=== PATIENT | female | born 1930 | race Caucasian/White ===

== ENCOUNTER → 2016-08-23 | Outpatient (CLI) | payer MEDICARE ==
--- NOTE | 2016-08-23 14:55 | US ---
EXAMINATION TYPE: US venous doppler duplex LE RT DATE OF EXAM: 08/23/2016 2:33 PM COMPARISON: NONE CLINICAL HISTORY: RLE Foot and calf pain M79.671; nondisplaced fracture of right 2nd, 3rd and 4th met atarsal; right foot swelling since June 10 fractures SIDE PERFORMED: Right TECHNIQUE: The lower extremity deep venous system is examined utilizing real time linear array sonog monserrat with graded compression, doppler sonography and color-flow sonography. VESSELS IMAGED: Common Femoral Vein Deep Femoral Vein Greater Saphenous Vein * Femoral Vein Popliteal Vein Small Saphenous Vein * Proximal Calf Veins (* superficial vessels) No popliteal fossa lesion is seen. Right Leg: Negative for DVT; Negative for SVT as assessed for Right Greater Saphenous Vein. Prominen t right groin lymph node is imaged = 1.9 x 1.8 x 1.4cm. IMPRESSION: 1. THIS EXAMINATION IS NEGATIVE FOR DVT IN THE RIGHT LEG. 2. ABNORMAL ENLARGED AND REPLACED RIGHT INGUINAL LYMPH NODE.
== END | disposition home or self-care (01) ==
LOC: RADUSWWP 14:06
PROVIDERS: ATTEND Orthopaedic Surgery
DX: R59.0 Localized enlarged lymph nodes (principal); M79.671 Pain in right foot

== ENCOUNTER 2016-09-09 15:02 | Emergency (ER) | payer MEDICARE ==
[2016-09-09 15:28] VITALS: PULSE 70; TEMP 97.8
--- NOTE | 2016-09-09 15:59 | ED ---
General Adult HPI - General Chief complaint: Fall Stated complaint: Fall/head injury-sent by [facility] Time Seen by Provider: 09/09/16 15:49 Source: patient, RN notes reviewed Mode of arrival: wheelchair Limitations: no limitations - History of Present Illness Initial comments: 86-year-old female past mental history of Parkinson's and hypertension presents status post fall in her bathroom. Patient does have history of falls which are secondary to her Parkinson's disease. She fell this morning hit her head on the bathroom sink, there is no loss of consciousness, no history of blood thinners. Patient was evaluated at the urgent care for this fall, she was found to have fracture of the right foot which was splinted, and patient was instructed to follow up with orthopedics. She was sent to our emergency department for evaluation of head trauma. She does complain of a mild occipital headache where she hit her head, no neck pain. Patient has recent fracture of the right foot, and according to her and the findings at urgent care she refractured her foot. No chest pain, no shortness of breath, no palpitations preceding the fall. No abdominal pain. No nausea no vomiting or diarrhea - Related Data Home Medications Medication Instructions Recorded Confirmed Cholecalciferol [Vitamin D3] 3,000 unit PO DAILY 12/09/13 09/09/16 Furosemide [Lasix] 20 mg PO DAILY 12/09/13 09/09/16 [place]-3 Fatty Acids/Fish Oil [Fish 1 cap PO DAILY 12/09/13 09/09/16 Oil 1,000 mg Softgel] amLODIPine BESYLATE/BENAZEPRIL 1 cap PO DAILY 12/09/13 09/09/16 [Lotrel 10-20 mg Capsule] Solifenacin Succinate [Vesicare] 5 mg PO Q48H 12/03/15 09/09/16 cycloSPORINE [Restasis] 1 drop BOTH EYES BID 12/03/15 09/09/16 Carbidopa/Levodopa [Sinemet CR 1 tab PO BID 09/09/16 09/09/16 50-200 mg] Vitamin E (Dl,Tocopheryl Acet) 400 unit PO DAILY 09/09/16 09/09/16 [Vitamin E] Allergies Allergy/AdvReac Type Severity Reaction Status Date / Time oxybutynin chloride Allergy Rash/Hives Verified 09/09/16 15:52 [From Ditropan] Review of Systems ROS Statement: Those systems with pertinent positive or pertinent negative responses have been documented in the HPI. ROS Other: All systems not noted in ROS Statement are negative. Past Medical History Past Medical History: Hypertension Additional Past Medical History / Comment(s): parkinson's History of Any Multi-Drug Resistant Organisms: None Reported Past Surgical History: Appendectomy, Back Surgery, Hysterectomy, Tonsillectomy Past Psychological History: No Psychological Hx Reported Smoking Status: Never smoker Past Alcohol Use History: Rare Past Drug Use History: None Reported General Exam Limitations: no limitations General appearance: alert, in no apparent distress Head exam: Present: normocephalic, other (Tenderness to palpation in the mid occiput, no hematoma, no scalp laceration) Eye exam: Present: normal appearance, PERRL, EOMI ENT exam: Present: normal exam, mucous membranes moist Neck exam: Present: normal inspection, full ROM. Absent: tenderness Respiratory exam: Present: normal lung sounds bilaterally, respiratory distress Cardiovascular Exam: Present: regular rate, normal rhythm GI/Abdominal exam: Present: soft. Absent: distended, tenderness Extremities exam: Present: other (Procedure note placed on the right lower extremity. Good cap refill. There is soft tissue swelling in the mid foot) Back exam: Present: normal inspection, full ROM. Absent: tenderness Neurological exam: Present: alert, oriented X3, CN II-XII intact. Absent: motor sensory deficit Psychiatric exam: Present: normal affect, normal mood Skin exam: Present: warm, dry. Absent: cyanosis, diaphoretic Course Vital Signs 09/09/16 15:23 Temperature 97.8 F Pulse Rate 70 Respiratory 16 Rate Blood Pressure 136/61 O2 Sat by Pulse 99 Oximetry Medical Decision Making - Medical Decision Making 86-year-old female presents status post fall. Patient has Parkinson's and has history of occasional falls. She denied any preceding symptoms. Her head on the bathroom sink. No loss of consciousness. Patient was evaluated for his fall at her urgent care and found to have fractures in the right foot. She has a recent history of fractures and according to the patient she refractured this foot today. She was splinted prior to arrival. She has an appointment with orthopedic surgery on Monday for the broken foot. Head CT and CT of the cervical spine was obtained emergency department, there is no intracranial abdomen Oddi, no fracture or subluxation of the cervical spine. Patient is discharged home with outpatient follow-up. Diagnosis: Right foot fracture, closed head injury. Disposition Clinical Impression: Fall, Head injury Disposition: HOME SELF-CARE Instructions: Fall Prevention for Older Adults (ED), Head Injury (ED) Referrals: Doroteo Roblero MD [Primary Care Provider] - 1-2 days Time of Disposition: 17:31
--- NOTE | 2016-09-09 17:12 | CT ---
EXAMINATION TYPE: CT brain bhavik nice DATE OF EXAM: 09/09/2016 COMPARISON: 12/03/2015 HISTORY: Fall today with injury. No head or neck complaints at time of scan CT DLP: 1607 mGycm Automated exposure control for dose reduction was used. TECHNIQUE: CT scan of the head and cervical spine are performed without contrast. FINDINGS: There is some cerebral cortical atrophy. There is no mass effect nor midline shift. There is no sign of intracranial hemorrhage. Calvarium is intact. There is patchy hypodensity in the periv entricular white matter.. Cervical vertebra have normal alignment. There is moderate narrowing of C 5/6 disc space with spurrin g of the endplates. There is a mild relative spinal stenosis at C5-6. Facet joints are intact. Skull base is intact. There is calcification of the transverse ligament at C1 level. IMPRESSION: Cerebral atrophy. Mild chronic small vessel ischemia. No acute intracranial abnormality. No change in the appearance of the brain. Spondylosis at C5-6. No fracture. No change compared to old exam.
[2016-09-09 18:04] VITALS: BP 120/59; RESP 18
== END 2016-09-09 18:04 | disposition home or self-care (01) ==
LOC: EC 15:02
DX: S09.90XA Unspecified injury of head, initial encounter (principal); S92.901A Unspecified fracture of right foot, initial encounter for closed fracture; I10 Essential (primary) hypertension; G20 Parkinson's disease; Z79.899 Other long term (current) drug therapy; Z88.8 Allergy status to other drugs, medicaments and biological substances; W01.198A Fall on same level from slipping, tripping and stumbling with subsequent striking against other object, initial encounter; Y92.002 Bathroom of unspecified non-institutional (private) residence as the place of occurrence of the external cause
CPT/HCPCS: 70450; 72125; 99283

== ENCOUNTER → 2017-05-08 | Outpatient (CLI) | payer MEDICARE ==
--- NOTE | 2017-05-08 13:20 | XR ---
EXAMINATION TYPE: XR Hip RT and AP Pelvis DATE OF EXAM: 05/08/2017 COMPARISON: NONE HISTORY: Fall with subsequent pelvic and right hip pain TECHNIQUE: A single AP view of the pelvis is obtained. Two views of the right hip are obtained. FINDINGS: There is no acute fracture/dislocation evident in the pelvis. The hip and sacroiliac join ts appear symmetric and unremarkable. The overlying soft tissue appears unremarkable. Two views of right hip show no acute fracture or dislocation. No focal lytic or sclerotic lesion see n in the proximal right femur. Mild bilateral femoral acetabular arthropathy is seen, right greater t garcía left demonstrated as cephalad joint space narrowing and acetabular sclerosis. Postsurgical change s of the lumbar spine are partially visualized. The overlying soft tissue is unremarkable. IMPRESSION: There is no acute fracture or dislocation in the pelvis or right hip.
--- NOTE | 2017-05-08 13:20 | XR ---
EXAMINATION TYPE: XR lumbosacral spine min 4V DATE OF EXAM: 05/08/2017 COMPARISON: 12/09/2013 HISTORY: 87-year-old female with low back pain after fall last week TECHNIQUE: 5 views FINDINGS: Levoconvex curvature. 5 lumbar type vertebral bodies. There is posterior lumbar fusion from L2 throug h L4 levels with mature lateral osseous fusion and corresponding laminectomies. There appears to be p rogressive disposition degenerative change at the level above the fusion at L1-L2. Grade 1 retrolisth esis at the fused L2-L3 level appears similar. Grade 1 anterolisthesis at L5-S1 appears new. Vertebra l body heights are maintained. IMPRESSION: 1. Posterior lumbar and lateral osseous fusion from L2 through L4 levels with corresponding laminecto mies. 2. Progressive disc/endplate degenerative change above the fusion at L1-L2 with complete loss of disc space and [id number] articulation with progressive reactive sclerosis, endplate remodeling, and se condary accentuation of a kyphosis here. 3. No vertebral compression collapse. 4. New grade 1 anterolisthesis L5-S1.
== END | disposition home or self-care (01) ==
LOC: RADXRMAIN 12:39
PROVIDERS: ATTEND Internal Medicine
DX: M43.17 Spondylolisthesis, lumbosacral region (principal); M47.816 Spondylosis without myelopathy or radiculopathy, lumbar region; Z98.1 Arthrodesis status
CPT/HCPCS: 72110; 73502

== ENCOUNTER → 2017-08-23 | Outpatient (CLI) | payer MEDICARE ==
--- NOTE | 2017-08-24 10:17 | MM ---
Reason for exam: screening (asymptomatic). Last mammogram was performed 11 years and 9 months ago. History: Patient is postmenopausal. Family history of premenopausal breast cancer in sister. Physical Findings: A clinical breast exam by your physician is recommended on an annual basis and results should be correlated with mammographic findings. MG 3D Screening Mammo W/Cad Bilateral CC and MLO view(s) were taken. Prior study comparison: August 13, 2015, mammogram, performed at [facility]. July 23, 2013, mammogram, performed at [facility]. November 16, 2005, bilateral screening mammogram w/CAD. October 08, 2002, bilateral screening mammogram. There are scattered fibroglandular densities. Benign appearing bilateral calcifications. No suspicious abnormality. No significant changes when compared with prior studies. ASSESSMENT: Benign, BI-RAD 2 RECOMMENDATION: Routine screening mammogram of both breasts in 1 year.
== END | disposition home or self-care (01) ==
LOC: RADMAMWWP 14:30
PROVIDERS: ATTEND Internal Medicine
DX: Z12.31 Encounter for screening mammogram for malignant neoplasm of breast (principal)
CPT/HCPCS: 77063; 77067

== ENCOUNTER → 2017-12-15 | Outpatient (CLI) | payer MEDICARE ==
--- NOTE | 2017-12-15 16:01 | XR ---
EXAMINATION TYPE: XR Hip Complete RT DATE OF EXAM: 12/15/2017 CLINICAL HISTORY: pain TECHNIQUE: AP and frogleg views of the right hip are obtained. COMPARISON: None. FINDINGS: There is no acute fracture/dislocation evident. The joint space appears mildly narrowed. The overlying soft tissue appears unremarkable. IMPRESSION: 1. There is no acute fracture or dislocation. ICD 10 NO FRACTURE, INITIAL EVALUATION
--- NOTE | 2017-12-17 10:05 | XR ---
EXAMINATION TYPE: XR lumbar spine 2 or 3V DATE OF EXAM: 12/15/2017 CLINICAL HISTORY: pain TECHNIQUE: Three views of the lumbar spine are submitted. COMPARISON: May 08, 2017 FINDINGS: Postoperative changes of lumbar fusion and laminectomy with pedicular screws extending from L2 throug h L4. There is stable alignment noted. Severe degenerative change noted at L1-2. There appears to be grade 1 retrolisthesis of L2 on L3 of 7 mm unchanged from prior study. No evidence for compression fr acture. IMPRESSION: Stable postoperative appearance and alignment.
== END | disposition home or self-care (01) ==
LOC: RADXRMAIN 15:24
PROVIDERS: ATTEND Psychiatry & Neurology Neurology
DX: S79.911A Unspecified injury of right hip, initial encounter (principal); M54.5 Low back pain; Z98.1 Arthrodesis status; Z98.890 Other specified postprocedural states
CPT/HCPCS: 72100; 73502

== ENCOUNTER → 2018-01-08 | Outpatient (CLI) | payer MEDICARE ==
--- NOTE | 2018-01-08 14:34 | MR ---
EXAMINATION TYPE: MR lumbar spine wo con DATE OF EXAM: 01/08/2018 COMPARISON: Plain film dated 12/15/2017 HISTORY: Radiculopathy; herniated disk TECHNIQUE: Multiplanar, multisequence images of the lumbar spine were acquired. L1-L2: Posterior extension of endplate disc complex causes anterior mass effect on the thecal sac. On ly mild central stenosis. No significant foraminal encroachment. L2-L3: No significant central canal stenosis. There may be some foraminal encroachment contributed by the listhesis. No disc herniation. L3-L4: No significant central stenosis or disc herniation. No foraminal encroachment. Laminectomy keon nge is present. L4-L5: Broad-based posterior disc bulge present at L3-4 and shows is mild anterior mass effect on the thecal sac. Laminectomies present. No significant spinal stenosis or foraminal encroachment. Posteri or to the spinal canal slitlike fluid collection May represent postoperative seroma. L5-S1: Facet arthropathy change with hypertrophy of ligamentum flavum causes posterior lateral mass e ffect on the thecal sac. No significant foraminal encroachment or central stenosis. Suspect there is a synovial cysts along the right neural foramen. Lumbar segments are intact. No paraspinal masses are identified. Conus medullaris has a normal appe arance. There is a spinal curvature as noted on plain film. Metallic susceptibility artifact obscures detail. Slight kyphosis centered at L1-2 as on plain film. Loss of disc height and signal present at intervertebral levels especially L2-3, L1-2, there is endplate discogenic marrow signal change, mult ilevel spondylosis. Retrolisthesis grade 1 L2-3 as on plain film. Lumbar vertebral bodies show preser lance height. IMPRESSION: Degenerative disc disease, facet arthropathy, postop changes, foraminal encroachment as described, ad ditional findings above.
== END | disposition home or self-care (01) ==
LOC: RADMRIMAIN 11:48
PROVIDERS: ATTEND Psychiatry & Neurology Neurology
DX: M51.36 Other intervertebral disc degeneration, lumbar region (principal); M46.96 Unspecified inflammatory spondylopathy, lumbar region; Z98.890 Other specified postprocedural states
CPT/HCPCS: 72148

== ENCOUNTER 2018-09-21 13:19 | Observation (INO) | payer MEDICARE ==
[2018-09-21] MEDS ORDERED: MORPHINE SULFATE 2 MG/ML SYRINGE IVP STA (13:47)
--- NOTE | 2018-09-21 14:06 | ED ---
Fall HPI - General Chief Complaint: Fall Stated Complaint: fall Time Seen by Provider: 09/21/18 13:41 Source: EMS Mode of arrival: EMS - History of Present Illness Initial Comments: 88-year-old female history of Parkinson's disease and HTN presenting today for cc of fall and mid back pain. Patient states that she has history of Parkinson's disease and is often off balance due to her tremor. Patient states she was getting out of the shower when she fell hitting left side of her mid back on the edge of the bathtub. Patient denies any head injury injury to the neck. She states she had pain and was able to get up and ambulate down the stairs. She denies pain of the upper extremities or lower extremities. She states the pain wraps around her left side towards the abdomen. Patient states that she takes a deep breath she is increasing pain. Patient denies loss of consciousness. Injury to the face. Patient denies any use of anticoagulation. Patient denies any chest pain shortness of breath dizziness headache or any other symptoms prior to falling she states she simply lost her balance. Remaining review of systems negative, upon arrival patient appears uncomfo rtable, holding the left side of the mid back. Remaining ROS (-). - Related Data Home Medications Medication Instructions Recorded Confirmed Cholecalciferol [Vitamin D3] 3,000 unit PO DAILY 12/09/13 09/21/18 Furosemide [Lasix] 20 mg PO DAILY 12/09/13 09/21/18 [place]-3 Fatty Acids/Fish Oil [Fish 1 cap PO DAILY 12/09/13 09/21/18 Oil 1,000 mg Softgel] amLODIPine BESYLATE/BENAZEPRIL 1 cap PO DAILY 12/09/13 09/21/18 [Lotrel 10-20 mg Capsule] Carbidopa/Levodopa [Sinemet CR 1 tab PO BID 09/09/16 09/21/18 50-200 mg] Vitamin E (Dl,Tocopheryl Acet) 400 unit PO DAILY 09/09/16 09/21/18 [Vitamin E] Baclofen [Lioresal] 10 mg PO HS 09/21/18 09/21/18 Lifitegrast [Xiidra] 1 drop BOTH EYES BID 09/21/18 09/21/18 Mirabegron [Myrbetriq] 50 mg PO DAILY 09/21/18 09/21/18 Rasagiline Mesylate 1 mg PO DAILY 09/21/18 09/21/18 Allergies Allergy/AdvReac Type Severity Reaction Status Date / Time oxybutynin chloride Allergy Rash/Hives Verified 09/21/18 15:59 [From Ditropan] Review of Systems ROS Statement: Those systems with pertinent positive or pertinent negative responses have been documented in the HPI. ROS Other: All systems not noted in ROS Statement are negative. Past Medical History Past Medical History: Hypertension Additional Past Medical History / Comment(s): parkinson's History of Any Multi-Drug Resistant Organisms: None Reported Past Surgical History: Appendectomy, Back Surgery, Hysterectomy, Tonsillectomy Past Psychological History: No Psychological Hx Reported Smoking Status: Never smoker Past Alcohol Use History: Rare Past Drug Use History: None Reported General Exam - General Exam Comments Initial Comments: General: The patient is awake and alert, in no distress, and does not appear acutely ill. Eye: +2 mm pupils are equal, round and reactive to light, extra-ocular movements are intact. No nystagmus. There is normal conjunctiva bilaterally. No signs of icterus. No scalp/head deformities or palpable defects. Ears, nose, mouth and throat: There are moist mucous membranes and no oral lesions. No raccoon or bailey sign. No blood in the TM b/l. Neck: The neck is supple, there is no tenderness or JVD. No midline tenderness to palpation of the cervical or lumbar spine, patient is able to full range at the c-spine without difficulty. Cardiovascular: There is a regular rate and rhythm. No murmur, rub or gallop is appreciated. Respiratory: Lungs are clear to auscultation, respirations are non-labored, breath sounds are equal. No wheezes, stridor, rales, or rhonchi. Gastrointestinal: No bruising noted of the abdomen. The abdomen is soft, non-distended, there is no tenderness to palpation of the abdomen without masses or organomegaly noted. There is no rebound or guarding present. The is pain to palpation of the left lateral ribs. No flail chest or gross deformity. Musculoskeletal: Normal ROM, no tenderness. Strength 5/5. Sensation intact. Pulses equal bilaterally 2+. Neurological: A&O x 3. CN II-XII intact, There are no obvious motor or sensory deficits. Speech is normal. Tremor of hands noted b/l. Skin: Skin is warm and dry and no rashes or lesions are noted. Psychiatric: Cooperative, appropriate mood & affect, normal judgment. Limitations: no limitations Course Vital Signs 09/21/18 09/21/18 09/21/18 13:20 14:59 16:20 Temperature 98 F Pulse Rate 66 67 75 Respiratory 16 18 18 Rate Blood Pressure 130/66 130/66 130/66 O2 Sat by Pulse 100 100 99 Oximetry 09/21/18 18:26 Temperature 98 F Pulse Rate 75 Respiratory 18 Rate Blood Pressure 130/66 O2 Sat by Pulse 99 Oximetry Medical Decision Making - Medical Decision Making 88yo female presenting today for cc of fall with back/side pain. Multiple displaced rib fractures of 7 & 8 left lateral ribs. With noted pulmonary contusion. There is no noted pneumothorax. Patient has lung sounds present in all almendarez. Patient is splinting her breaths. Her pain was no controlled with morphine in the ER. Patient has no other complaints. No apparent intraabdominal process. Patient dnies headache injury, no focal deficits. Case discussed with Dr Pollard he consulted trauma. Dr. Wei accepted admission. Patient has ordered PRN medications. Ordered hourly incentive spirometry. Findings discussed with patient she remains stable, VS within acceptable limits. Patient agreeable with admission. Transferred to the floor in stable condition - Lab Data Result diagrams: 09/21/18 14:35 09/21/18 14:35 Lab Results 09/21/18 09/21/18 Range/Units 14:35 14:35 WBC 8.1 (3.8-10.6) k/uL RBC 4.57 (3.80-5.40) m/uL Hgb 14.4 (11.4-16.0) gm/dL Hct 43.2 (34.0-46.0) % MCV 94.5 (80.0-100.0) fL MCH 31.6 (25.0-35.0) pg MCHC 33.4 (31.0-37.0) g/dL RDW 12.3 (11.5-15.5) % Plt Count 352 (150-450) k/uL Neutrophils % 75 % Lymphocytes % 14 % Monocytes % 7 % Eosinophils % 1 % Basophils % 1 % Neutrophils # 6.1 (1.3-7.7) k/uL Lymphocytes # 1.1 (1.0-4.8) k/uL Monocytes # 0.5 (0-1.0) k/uL Eosinophils # 0.1 (0-0.7) k/uL Basophils # 0.1 (0-0.2) k/uL Sodium 136 L (137-145) mmol/L Potassium 4.9 (3.5-5.1) mmol/L Chloride 102 (98-107) mmol/L Carbon Dioxide 24 (22-30) mmol/L Anion Gap 10 mmol/L BUN 27 H (7-17) mg/dL Creatinine 1.00 (0.52-1.04) mg/dL Est GFR (CKD-EPI)AfAm 59 (>60 ml/min/1.73 sqM) Est GFR (CKD-EPI)NonAf 52 (>60 ml/min/1.73 sqM) Glucose 106 H (74-99) mg/dL Calcium 10.1 (8.4-10.2) mg/dL Total Bilirubin 0.7 (0.2-1.3) mg/dL AST 32 (14-36) U/L ALT 13 (9-52) U/L Alkaline Phosphatase 71 (38-126) U/L Total Protein 7.9 (6.3-8.2) g/dL Albumin 4.6 (3.5-5.0) g/dL Disposition Clinical Impression: Closed traumatic displaced fracture of rib, Pulmonary contusion, Back pain, Multiple rib fractures, Fall Disposition: ADMITTED IP TO THIS [facility] Condition: Stable Is patient prescribed a controlled substance at d/c from ED?: No Time of Disposition: 16:35 Decision to Admit Reason: Admit from EC Decision Date: 09/21/18 Decision Time: 16:35
--- NOTE | 2018-09-21 14:43 | XR ---
EXAMINATION TYPE: XR thoracic spine 2V DATE OF EXAM: 09/21/2018 CLINICAL HISTORY: Back pain after fall TECHNIQUE: Frontal, lateral, and swimmer's view of thoracic spine are obtained. COMPARISON: None. FINDINGS: Thoracic spine show satisfactory alignment without evidence of acute fracture or dislocatio n. Vertebral body heights are preserved however intervertebral disc space narrowing is seen at multi ple levels with small anterior osteophytes. Surgical fixation of the lumbar spine is partially visual ized with surgical clips at the thoracolumbar junction. Mild levoscoliosis of the thoracolumbar junct ion may be positional. IMPRESSION: No acute fracture or malalignment is seen in the thoracic spine. Mild multilevel degener ative disc disease.
--- NOTE | 2018-09-21 14:45 | XR ---
EXAMINATION TYPE: XR ribs LT w pa chest xray DATE OF EXAM: 09/21/2018 COMPARISON: NONE HISTORY: Back pain and rib pain after fall TECHNIQUE: Frontal and oblique views of the left ribs were obtained. Single frontal view the chest wa s also obtained. FINDINGS: There are minimally displaced acute fractures of ribs 7 and 8 of a posterior lateral margin on the left. No healed callused rib fracture deformity is seen. No additional acute displaced fractu re. Left lower lung slight increased density could represent pulmonary contusion. No discrete pneumothora x is appreciated. Cardiomediastinal silhouette is mildly enlarged. No focal consolidation on the righ t. IMPRESSION: 1. Minimally displaced acute fractures of ribs 7 and 8 on the left at the posterior lateral margin. 2. Patchy opacity adjacent to the rib fractures in the left lower lobe could relate to pulmonary cont usion. No discrete pneumothorax is seen.
[2018-09-21 14:59] LABS: Basophils # (A) 0.1 k/uL (0-0.2); Basophils % (A) 1 %; Eosinophils # (A) 0.1 k/uL (0-0.7); Eosinophils % (A) 1 %; HCT 43.2 % (34.0-46.0); HGB 14.4 gm/dL (11.4-16.0); Lymphocytes # (A) 1.1 k/uL (1.0-4.8); Lymphocytes % (A) 14 %; MCH 31.6 pg (25.0-35.0); MCHC 33.4 g/dL (31.0-37.0); MCV 94.5 fL (80.0-100.0); Mean Platelet Volume 7.5; Monocytes # (A) 0.5 k/uL (0-1.0); Monocytes % (A) 7 %; Neutrophils # (A) 6.1 k/uL (1.3-7.7); Neutrophils % (A) 75 %; Platelet Count 352 k/uL (150-450); RBC 4.57 m/uL (3.80-5.40); RDW 12.3 % (11.5-15.5); WBC 8.1 k/uL (3.8-10.6)
[2018-09-21 15:05] LABS: Albumin 4.6 g/dL (3.5-5.0); Calcium 10.1 mg/dL (8.4-10.2); Potassium 4.9 mmol/L (3.5-5.1); Total Bilirubin 0.7 mg/dL (0.2-1.3); Total Protein 7.9 g/dL (6.3-8.2)
[2018-09-21] MEDS ORDERED: MORPHINE SULFATE 4 MG/ML SYRINGE IVP STA (15:53)
--- NOTE | 2018-09-21 15:54 | CT ---
EXAMINATION TYPE: CT abdomen pelvis w con DATE OF EXAM: 09/21/2018 COMPARISON: X-ray the ribs dated 09/21/2018 HISTORY: Fall CT DLP: 527.9 mGycm Automated exposure control for dose reduction was used. TECHNIQUE: Helical acquisition of images was performed from the lung bases through the pelvis. CONTRAST: Performed without Oral Contrast and with IV Contrast, patient injected with 100 mL mL of Isovue 370. FINDINGS: LUNG BASES: Redemonstration of partially visualized nondisplaced left posterior-lateral comminuted ei ghth and ninth rib fractures with a portion of the rib fracture extending into the pleural space and causing subcutaneous emphysema along the posterior chest and abdomen. No evidence of pneumothorax in the visualized portion of the chest on the left. Left basilar subsegmental atelectasis. LIVER/GB: No significant abnormality is appreciated. PANCREAS: No significant abnormality is seen. SPLEEN: No significant abnormality is seen. ADRENALS: No significant abnormality is seen. KIDNEYS: No significant abnormality is seen. FREE AIR: No free air is visualized. RETROPERITONEAL ADENOPATHY: Retroperitoneal surgical clips are seen along the spleen and left kidney . REPRODUCTIVE ORGANS: No significant abnormality is seen URINARY BLADDER: No significant abnormality is seen. PELVIC ADENOPATHY: None visualized. OSSEOUS STRUCTURES: L2-4 posterior fusion hardware appears intact. Adjacent level endplate disease a t L1-S2. No acute compression deformity. BOWEL: No significant abnormality is seen. IMPRESSION: NO ACUTE PROCESS WITHIN THE ABDOMEN OR PELVIS. NO EVIDENCE OF VISCERAL ORGAN INJURY. PARTIALLY VISUALIZED DISPLACED LEFT RIB FRACTURES WITH EXTENSION INTO THE PLEURAL SPACE AND LEFT POST ERIOR CHEST AND ABDOMEN SUBCUTANEOUS EMPHYSEMA.
[2018-09-21] MEDS ORDERED: ONDANSETRON 4 MG/2 ML VIAL IVP PRN (16:31)
[2018-09-21] MEDS ORDERED: NALOXONE 0.4 MG/ML 1 ML VIAL IV PRN (16:31)
[2018-09-21] MEDS: SODIUM CHLORIDE 0.9% 1,000 ML IV SCH (18:27)
[2018-09-21] MEDS: MORPHINE SULFATE 4 MG/ML SYRINGE IV PRN ×2 (19:38→23:22)
[2018-09-21] MEDS: HYDROcodone/APAP 5-325MG 1 EACH TAB PO PRN (20:24)
[2018-09-21] MEDS: METHOCARBAMOL 500 MG TAB PO SCH (20:24)
--- NOTE | 2018-09-21 21:34 | P.GSHP ---
History of Present Illness H&P Date: 09/21/18 This 88-year-old female with Parkinson's disease who was in her bathroom when she turned and lost her balance she fell and hit her left side on her way down. She denies any loss of consciousness she denies hitting her head. She's not on any blood thinners. She was found to have multiple left rib fractures minimally displaced. She complains of pain on her left back near her rib fractures. She denies any abdominal pain. She denies any nausea vomiting. She denies any other injuries. Past Medical History Past Medical History: Hypertension Additional Past Medical History / Comment(s): parkinson's History of Any Multi-Drug Resistant Organisms: None Reported Past Surgical History: Appendectomy, Back Surgery, Hysterectomy, Tonsillectomy Past Psychological History: No Psychological Hx Reported Smoking Status: Never smoker Past Alcohol Use History: Rare Past Drug Use History: None Reported - Past Family History Mother Family Medical History: No Reported History Medications and Allergies Home Medications Medication Instructions Recorded Confirmed Type Cholecalciferol [Vitamin D3] 3,000 unit PO DAILY 12/09/13 09/21/18 History Furosemide [Lasix] 20 mg PO DAILY 12/09/13 09/21/18 History [place]-3 Fatty Acids/Fish Oil [Fish 1 cap PO DAILY 12/09/13 09/21/18 History Oil 1,000 mg Softgel] amLODIPine BESYLATE/BENAZEPRIL 1 cap PO DAILY 12/09/13 09/21/18 History [Lotrel 10-20 mg Capsule] Carbidopa/Levodopa [Sinemet CR 1 tab PO BID 09/09/16 09/21/18 History 50-200 mg] Vitamin E (Dl,Tocopheryl Acet) 400 unit PO DAILY 09/09/16 09/21/18 History [Vitamin E] Baclofen [Lioresal] 10 mg PO HS 09/21/18 09/21/18 History Lifitegrast [Xiidra] 1 drop BOTH EYES BID 09/21/18 09/21/18 History Mirabegron [Myrbetriq] 50 mg PO DAILY 09/21/18 09/21/18 History Rasagiline Mesylate 1 mg PO DAILY 09/21/18 09/21/18 History Allergies Allergy/AdvReac Type Severity Reaction Status Date / Time oxybutynin chloride Allergy Rash/Hives Verified 09/21/18 15:59 [From Ditropan] Surgical - Exam Osteopathic Statement: *. No significant issues noted on an osteopathic structural exam other than those noted in the History and Physical/Consult. Vital Signs Temp Pulse Resp BP Pulse Ox 98 F 66 16 130/66 100 09/21/18 13:20 09/21/18 13:20 09/21/18 13:20 09/21/18 13:20 09/21/18 13:20 - General well developed, no distress - Eyes PERRL - Neck no masses - Respiratory Tenderness palpation over the left flank normal respiratory effort - Cardiovascular Rhythm: regular - Abdomen Abdomen: soft, non tender - Psychiatric oriented to time, oriented to person, oriented to place Results - Labs 09/21/18 14:35 09/21/18 14:35 Abnormal Lab Results - Last 24 Hours (Table) 09/21/18 Range/Units 14:35 Sodium 136 L (137-145) mmol/L BUN 27 H (7-17) mg/dL Glucose 106 H (74-99) mg/dL Diabetes panel 09/21/18 Range/Units 14:35 Sodium 136 L (137-145) mmol/L Potassium 4.9 (3.5-5.1) mmol/L Chloride 102 (98-107) mmol/L Carbon Dioxide 24 (22-30) mmol/L BUN 27 H (7-17) mg/dL Creatinine 1.00 (0.52-1.04) mg/dL Glucose 106 H (74-99) mg/dL Calcium 10.1 (8.4-10.2) mg/dL AST 32 (14-36) U/L ALT 13 (9-52) U/L Alkaline Phosphatase 71 (38-126) U/L Total Protein 7.9 (6.3-8.2) g/dL Albumin 4.6 (3.5-5.0) g/dL Calcium panel 09/21/18 Range/Units 14:35 Calcium 10.1 (8.4-10.2) mg/dL Albumin 4.6 (3.5-5.0) g/dL Pituitary panel 09/21/18 Range/Units 14:35 Sodium 136 L (137-145) mmol/L Potassium 4.9 (3.5-5.1) mmol/L Chloride 102 (98-107) mmol/L Carbon Dioxide 24 (22-30) mmol/L BUN 27 H (7-17) mg/dL Creatinine 1.00 (0.52-1.04) mg/dL Glucose 106 H (74-99) mg/dL Calcium 10.1 (8.4-10.2) mg/dL Adrenal panel 09/21/18 Range/Units 14:35 Sodium 136 L (137-145) mmol/L Potassium 4.9 (3.5-5.1) mmol/L Chloride 102 (98-107) mmol/L Carbon Dioxide 24 (22-30) mmol/L BUN 27 H (7-17) mg/dL Creatinine 1.00 (0.52-1.04) mg/dL Glucose 106 H (74-99) mg/dL Calcium 10.1 (8.4-10.2) mg/dL Total Bilirubin 0.7 (0.2-1.3) mg/dL AST 32 (14-36) U/L ALT 13 (9-52) U/L Alkaline Phosphatase 71 (38-126) U/L Total Protein 7.9 (6.3-8.2) g/dL Albumin 4.6 (3.5-5.0) g/dL Assessment and Plan Assessment: Minimally displaced left posterior ribs 7 and 8 Plan: I lengthy discussion with the patient regarding her advanced age and the risks of rib fractures and pneumonia. I personally taught her and encouraged her to use the incentive spirometer. We will continue with aggressive pain management. [place] Robaxin Toradol and IV morphine as needed. Patient is not in the ICU at this time as she is stable and using her incentive spirometer. If her pain becomes [id number] where she cannot use her incentive spirometer will consider ICU, also discussed with her that we could try an epidural if pain is not manageable. Patient would like to try to manage pain on oral pain medication with IV push as needed at this time. She is very agreeable. Patient does have a pulmonary contusion and she states that due to her Parkinson's she gets buildup of mucus. Due to this I recommend pulmonology consultation. We'll continue to closely monitor. Internal medicine consulted for medical management.
[2018-09-22] MEDS: KETOROLAC 30 MG/ML 1 ML VIAL IVP SCH ×5 (00:52→23:59)
--- NOTE | 2018-09-22 01:21 | P.CONS ---
History of Present Illness - Reason for Consult Consult date: 09/22/18 - History of Present Illness The patient is an 88 yo F with a PMH of parkinson's and HTN who was brought into the ED after a fall at home. The patient notes that she was in her bathroom with her walker when she lost her balance and fell on the border of the shower door, hitting the left side of her chest. She denied any head trauma or loss of consciousness. She was able to stand back up and activated EMS. She notes that she routinely falls multiple times a day due to her ataxia from Parkinson's, though is usually able to protect herself and doesn't sustain injuries. The patient lives by herself. At time of the interview, the patient endorsed 4/10 L sided chest pain with radiation throughout her entire left flank and her abdomen. She however denied shortness of breath, nausea, vomiting, palpitations, or diaphoresis. The patient underwent an extensive evaluation in the ED with ribs x-ray showing left mildly displaced 7 and 8 rib fractures with pulmonary contusion and no pneumothorax. Thoracic spine x-ray was unremarkable and abdomen/pelvis CT also revealed the displaced rib fractures. Laboratory evaluation revealed a WBC count of 8.1, hemoglobin 14.4, BUN 27, and creatinine 1.00. Review of Systems Pertinent positives and negatives as discussed in HPI, a complete review of systems was performed and all other systems are negative. Past Medical History Past Medical History: Hypertension Additional Past Medical History / Comment(s): parkinson's History of Any Multi-Drug Resistant Organisms: None Reported Past Surgical History: Appendectomy, Back Surgery, Hysterectomy, Tonsillectomy Past Psychological History: No Psychological Hx Reported Smoking Status: Never smoker Past Alcohol Use History: Rare Past Drug Use History: None Reported - Past Family History Mother Family Medical History: No Reported History Medications and Allergies Home Medications Medication Instructions Recorded Confirmed Type Cholecalciferol [Vitamin D3] 3,000 unit PO DAILY 12/09/13 09/21/18 History Furosemide [Lasix] 20 mg PO DAILY 12/09/13 09/21/18 History [place]-3 Fatty Acids/Fish Oil [Fish 1 cap PO DAILY 12/09/13 09/21/18 History Oil 1,000 mg Softgel] amLODIPine BESYLATE/BENAZEPRIL 1 cap PO DAILY 12/09/13 09/21/18 History [Lotrel 10-20 mg Capsule] Carbidopa/Levodopa [Sinemet CR 1 tab PO BID 09/09/16 09/21/18 History 50-200 mg] Vitamin E (Dl,Tocopheryl Acet) 400 unit PO DAILY 09/09/16 09/21/18 History [Vitamin E] Baclofen [Lioresal] 10 mg PO HS 09/21/18 09/21/18 History Lifitegrast [Xiidra] 1 drop BOTH EYES BID 09/21/18 09/21/18 History Mirabegron [Myrbetriq] 50 mg PO DAILY 09/21/18 09/21/18 History Rasagiline Mesylate 1 mg PO DAILY 09/21/18 09/21/18 History Allergies Allergy/AdvReac Type Severity Reaction Status Date / Time oxybutynin chloride Allergy Rash/Hives Verified 09/21/18 15:59 [From Ditropan] Physical Exam Vitals: Vital Signs Temp Pulse Pulse Resp BP BP Pulse Ox 09/21/18 21:27 18 09/21/18 21:00 96.3 F L 77 16 147/70 97 09/21/18 18:26 98 F 75 18 130/66 99 09/21/18 16:20 75 18 130/66 99 09/21/18 14:59 67 18 130/66 100 09/21/18 13:20 98 F 66 16 130/66 100 Intake and Output 09/21/18 09/21/18 09/22/18 14:59 22:59 06:59 Other: Voiding Method Toilet # Voids 1 Weight 53.524 kg General: non toxic, in mild distress from pain, appears at stated age, normal weight Derm: no unusual rashes/lesions no unusual ecchymoses, warm, dry Head: atraumatic, normocephalic, symmetric Eyes: EOMI, no lid lag, anicteric sclera, pupils equal round reactive to light ENT: Nose and ears atraumatic, no thrush, no pharyngeal erythema Neck: No thyromegaly, no cervical lymphadenopathy, trachea midline, supple Mouth: no lip lesion, mucus membranes moist Cardiovascular: S1S2 reg, no murmur, positive posterior tibial pulse bilateral, no edema, capillary refill less than 2 seconds Lungs: CTA bilateral, no rhonchi, no rales , no accessory muscle use Abdominal: soft, nontender to palpation, no guarding, no appreciable organomegaly, normal bowel sounds Ext: no gross muscle atrophy, muscle strength 5 out of 5 in all 4 extremities grossly, no contractures, left lateral chest wall tenderness Neuro: CN II-XI grossly intact, light touch intact all 4 extremities, finger to nose within normal limits, some cogwheel rigidity, and masked facies Psych: Alert, oriented, appropriate affect Results CBC & Chem 7: 09/21/18 14:35 09/21/18 14:35 Labs: Abnormal Lab Results - Last 24 Hours (Table) 09/21/18 Range/Units 14:35 Sodium 136 L (137-145) mmol/L BUN 27 H (7-17) mg/dL Glucose 106 H (74-99) mg/dL Assessment and Plan Plan: Left rib fractures -Surgery recommendations appreciated -Continue with incentive spirometer -Pain control Elevated BUN, likely secondary to dehydration -Continue with normal saline 50 mL an hour Chronic conditions: Parkinson's, hypertension -Continue with home meds DVT proph -Heparin subq
[2018-09-22] MEDS: HYDROcodone/APAP 5-325MG 1 EACH TAB PO PRN ×3 (02:35→21:41)
[2018-09-22] MEDS: HEPARIN SODIUM,PORCINE 5,000 UNIT/ML 1 ML VIAL SQ SCH ×3 (08:43→23:58)
[2018-09-22] MEDS: LIDOCAINE 5% PATCH TOPICAL SCH (08:44)
[2018-09-22] MEDS: FUROSEMIDE 20 MG TAB PO SCH (08:44)
[2018-09-22] MEDS: LISINOPRIL 20 MG TAB PO SCH (08:44)
[2018-09-22] MEDS: CHOLECALCIFEROL 1,000 UNIT TAB PO SCH (08:44)
[2018-09-22] MEDS: amLODIPine 5 MG TAB PO SCH (08:44)
[2018-09-22] MEDS: METHOCARBAMOL 500 MG TAB PO SCH ×4 (08:45→21:42)
[2018-09-22] MEDS: CARBIDOPA-LEVODOPA ER 50-200MG 1 EACH TABLET.ER PO SCH ×2 (08:45→21:42)
[2018-09-22] MEDS ORDERED: NON-FORMULARY DRUG (Omega-3 Fatty Acids/Fish Oil [Fish Oil 1,000 Mg Softgel] 1 CAP) PO SCH (09:00)
[2018-09-22] MEDS: Mirabegron [Myrbetriq] 50 MG PO SCH (09:11)
[2018-09-22] MEDS: Lifitegrast [Xiidra] BOTH EYES SCH ×2 (09:11→21:37)
[2018-09-22] MEDS: Rasagiline Mesylate [Rasagiline Mesylate] 1 MG PO SCH (09:12)
--- NOTE | 2018-09-22 10:58 | P.CNPUL ---
History of Present Illness Consult date: 09/22/18 Requesting physician: Dominik Wei Reason for consult: abnormal CXR/CT (Possible pulmonary contusion status post fall) Chief complaint: Left-sided chest and back pain status post fall History of present illness: This is a very pleasant 88-year-old female patient who follows with Dr. Roblero as her primary care physician. She has a history of hypertension, abdominal lymphoma status post resection, Parkinson's with balance issues. She presented to the emergency room yesterday lying a fall coming out of her shower. She had her left side of the chest against the shower door. Denied any loss of consciousness. On no anticoagulants. CAT scan of the abdomen revealed no acute process within the abdomen or pelvis. No evidence of visceral organ injury. Partially visualized displaced left rib fractures with extension into the pleural space and posterior chest and abdomen subcutaneous emphysema. Chest x- ray revealed minimally displaced acute fractures of ribs 7 and 8 on the left at the posterior lateral margin. There is patchy opacity adjacent to the rib fractures on the left lower lobe suspicious for pulmonary contusion. We're consulted for the same. She is seen today in consult on the regular medical floor. Currently sitting up in bed. Awake and alert in no acute distress. She is still having some left-sided and back discomfort. He is maintaining good O2 saturations in the 90s on room air. She's been educated regarding the use the incentive spirometer and cough and deep breathing exercises. White count 8.1. Hemoglobin 14.4. Sodium 136. Potassium 4.9. Creatinine 1.00. Her pain is well controlled. Review of Systems REVIEW OF SYSTEMS: CONSTITUTIONAL: Denies any recent significant weight loss or weight gain. EYES: Denies change in vision. EARS, NOSE, MOUTH, THROAT: Denies headaches, denies sore throat. CARDIOVASCULAR: Denies chest pain, palpitations or syncopal episodes. RESPIRATORY: Positive for pain on inspiration with left-sided and back discomfort, no cough, congestion or hemoptysis. GASTROINTESTINAL: Denies change in appetite, denies abdominal pain GENITOURINARY: Denies hematuria, denies infections. MUSKULOSKELETAL: Left-sided chest wall and back pain, denies swelling. INTEGUMENTARY: Denies rash, denies eczema. NEUROLOGICAL: Denies recent memory loss, no recent seizure activity. PSYCHIATRIC: Denies anxiety, denies depression. HEMATOLOGIC/LYMPHATIC: Denies anemia, denies enlarged lymph nodes. Past Medical History Past Medical History: Hypertension Additional Past Medical History / Comment(s): parkinson's History of Any Multi-Drug Resistant Organisms: None Reported Past Surgical History: Appendectomy, Back Surgery, Hysterectomy, Tonsillectomy Additional Past Surgical History / Comment(s): History of abdominal lymphoma, status post resection Past Psychological History: No Psychological Hx Reported Smoking Status: Never smoker Past Alcohol Use History: Rare Past Drug Use History: None Reported - Past Family History Mother Family Medical History: No Reported History Medications and Allergies Home Medications Medication Instructions Recorded Confirmed Type Cholecalciferol [Vitamin D3] 3,000 unit PO DAILY 12/09/13 09/21/18 History Furosemide [Lasix] 20 mg PO DAILY 12/09/13 09/21/18 History [place]-3 Fatty Acids/Fish Oil [Fish 1 cap PO DAILY 12/09/13 09/21/18 History Oil 1,000 mg Softgel] amLODIPine BESYLATE/BENAZEPRIL 1 cap PO DAILY 12/09/13 09/21/18 History [Lotrel 10-20 mg Capsule] Carbidopa/Levodopa [Sinemet CR 1 tab PO BID 09/09/16 09/21/18 History 50-200 mg] Vitamin E (Dl,Tocopheryl Acet) 400 unit PO DAILY 09/09/16 09/21/18 History [Vitamin E] Baclofen [Lioresal] 10 mg PO HS 09/21/18 09/21/18 History Lifitegrast [Xiidra] 1 drop BOTH EYES BID 09/21/18 09/21/18 History Mirabegron [Myrbetriq] 50 mg PO DAILY 09/21/18 09/21/18 History Rasagiline Mesylate 1 mg PO DAILY 09/21/18 09/21/18 History Allergies Allergy/AdvReac Type Severity Reaction Status Date / Time oxybutynin chloride Allergy Rash/Hives Verified 09/21/18 15:59 [From Ditropan] Physical Exam Vitals: Vital Signs Temp Pulse Pulse Resp BP BP Pulse Ox 09/22/18 05:00 97.6 F 74 16 126/82 94 L 09/21/18 21:27 18 09/21/18 21:00 96.3 F L 77 16 147/70 97 09/21/18 18:26 98 F 75 18 130/66 99 09/21/18 16:20 75 18 130/66 99 09/21/18 14:59 67 18 130/66 100 09/21/18 13:20 98 F 66 16 130/66 100 Intake and Output 09/21/18 09/22/18 09/22/18 22:59 06:59 14:59 Other: Voiding Method Toilet Toilet # Voids 1 2 GENERAL EXAM: Alert, pleasant 88-year-old female fairly comfortable in no apparent distress. On room air. HEAD: Normocephalic. EYES: Normal reaction of pupils, equal size. NOSE: Clear with pink turbinates. THROAT: No erythema or exudates. NECK: No masses, no JVD. CHEST: No chest wall deformity. Tenderness over the left chest and back. LUNGS: Equal air entry with crackles in the left posterior base.. CVS: S1 and S2 normal with no audible murmur, regular rhythm. ABDOMEN: No hepatosplenomegaly, normal bowel sounds, no guarding or rigidity. SPINE: No scoliosis or deformity SKIN: No rashes CENTRAL NERVOUS SYSTEM: No focal deficits, tone is normal in all 4 extremities. EXTREMITIES: There is no peripheral edema. No clubbing, no cyanosis. Peripheral pulses are intact. Results - Laboratory Findings CBC and BMP: 09/21/18 14:35 09/21/18 14:35 Abnormal lab findings: Abnormal Labs 09/21/18 14:35 Sodium 136 L BUN 27 H Glucose 106 H - Diagnostic Findings Chest x-ray: image reviewed Assessment and Plan Assessment: Impression: #1 Trauma with left rib fractures 7 and 8 and pulmonary contusion secondary to fall. Denies loss of consciousness. #2 Parkinson's disease with balance issues. #3 History of hypertension. #4 History of abdominal lymphoma, status post resection. #5 Lifelong nonsmoker. Plan: The patient was seen and evaluated by Dr. Liu. Chest x-ray, CAT scan and labs all reviewed. She is currently stable from the pulmonary standpoint. She is educated regarding the importance of the use of the incentive spirometer and cough and deep breathing exercises. Provide adequate pain control. Heparin for DVT prophylaxis. Increase her activity as tolerated. We will continue to follow and make further recommendations based on her clinical status. I, the cosigning physician, performed a history & physical examination of the patient. Lungs sounds faint crackles in the left posterior base. Maintaining good O2 saturations in the 90s on room air. I discussed the assessment and plan of care with my nurse practitioner, Nirmala Maldonado. I attest to the above consultation as dictated by her. Time with Patient: Greater than 30
[2018-09-22] MEDS ORDERED: MAGNESIUM HYDROXIDE 2,400 MG/10 ML CUP PO PRN (11:50)
[2018-09-22] MEDS: VITAMIN E (DL,TOCOPHERYL ACET) 400 UNIT CAP PO SCH (12:26)
--- NOTE | 2018-09-22 12:55 | P.PN ---
Subjective Progress Note Date: 09/22/18 Patient's doing very well today. She states her pain is improved. She's not requiring any morphine. She is taking Toradol Robaxin and Dustin. Patient is pulling 750 mL on incentive spirometer. She's tolerating her diet. Objective - Vital Signs Vital signs: Vital Signs Temp 97.6 F 09/22/18 11:40 Pulse 75 09/22/18 11:40 Resp 18 09/22/18 11:40 BP 135/69 09/22/18 11:40 Pulse Ox 94 L 09/22/18 11:40 Intake & Output 09/21/18 09/22/18 09/22/18 18:59 06:59 18:59 Weight 53.524 kg Other: Voiding Method Toilet Toilet # Voids 2 - Constitutional General appearance: Present: cooperative - Respiratory Details: Unlabored - Cardiovascular Rhythm: regular - Gastrointestinal Gastrointestinal Comment(s): Soft nontender nondistended - Psychiatric Psychiatric: Present: A&O x's 3 - Labs CBC & Chem 7: 09/21/18 14:35 09/21/18 14:35 Labs: Abnormal Lab Results - Last 24 Hours (Table) 09/21/18 Range/Units 14:35 Sodium 136 L (137-145) mmol/L BUN 27 H (7-17) mg/dL Glucose 106 H (74-99) mg/dL Assessment and Plan Assessment: Minimally displaced left posterior ribs 7 and 8 Plan: Continue pain management no plans for surgical intervention.
--- NOTE | 2018-09-22 16:14 | P.PN ---
Subjective Progress Note Date: 09/22/18 Principal diagnosis: fall and pain Patient is an 88-year-old female with a past medical history of Parkinson's disease, hypertension, and multiple falls who was brought into the emergency department after a fall at home. Patient had been using the bathroom when she fell and lost her balance. She had this our door with her left side of her chest. She denied any loss of consciousness. She has difficulty with ataxia and falls multiple times a day due to her Parkinson's disease. She recently completed outpatient physical therapy and reports a decrease in her falls. In the ER she underwent an extensive evaluation. Initial vital signs were within normal limits. Initial laboratory analysis showed an elevated BUN at [address] of the abdomen and pelvis demonstrated displaced left rib fractures with extension into the pleural space and left posterior chest and abdomen subcutaneous emphysema. Thoracic spine x-ray demonstrated no acute fracture or malalignment but multilevel degenerative disc disease. Lipid study showed minimally displaced acute fractures of ribs 7 and 8 on the left at the posterior lateral margin. There was a patchy opacity adjacent to the rib fractures likely representing pulmonary contusion. She was admitted to trauma surgery for further management we are asked to consult regarding her Parkinson's disease. Patient seen and examined at bedside. She is having some belly pain, denies any chest pain or shortness of breath. Has been using her incentive spirometer. She follows with Dr. Villafuerte for neurology. She reports that her falls have decreased since completing physical therapy. She lives at home alone and does have a life alert. She reports that her family is far away. Her granddaughter is a resident in general surgery and grandson is a resident orthopedic surgery. She is requesting admission to a rehab facility due to her falls. We discussed that if she is a able to ambulate greater than 200 feet with physical therapy she likely will not qualify for subacute rehab but likely should consider a lternative long-term placement. Currently she resides at [facility]. She does not want assisted placement. I discussed that her parkinson likely will not improve, she feels that if she had 2 weeks at rehab she could return home and manage. Objective - Vital Signs Vital signs: Vital Signs Temp 97.6 F 09/22/18 11:40 Pulse 75 09/22/18 11:40 Resp 18 09/22/18 11:40 BP 135/69 09/22/18 11:40 Pulse Ox 94 L 09/22/18 11:40 Intake & Output 09/21/18 09/22/18 09/22/18 18:59 06:59 18:59 Weight 53.524 kg Other: Voiding Method Toilet Toilet # Voids 2 2 - Exam General: non toxic, no distress, appears at stated age Derm: warm, dry Head: atraumatic, normocephalic, symmetric Eyes: EOMI, no lid lag, anicteric sclera Mouth: no lip lesion, mucus membranes moist Cardiovascular: S1S2 reg, no murmur, positive posterior tibial pulse bilateral, Lungs: CTA bilateral, no rhonchi, no rales , no accessory muscle use Abdominal: soft, nontender to palpation, no guarding, no appreciable organomegaly Ext: no gross muscle atrophy, no edema, no contractures Neuro: CN II-XI grossly intact, choreaform movements of head and neck, Psych: Alert, oriented, appropriate affect - Labs CBC & Chem 7: 09/21/18 14:35 09/21/18 14:35 Assessment and Plan Assessment: (7 to an acute fracture due to mechanical fall -Fall precautions, PT/OT -Consult case management regarding possible need for placement -Pain control -Incentives parameter -Repeat chest x-ray in a.m. to assess for pulmonary contusion Dehydration as evidenced elevated BUN IV fluids -Repeat basic metabolic profile in a.m. Parkinson's disease - follow with neurology - on baclofen, rasagiline, sinemet Hypertension -Continue with RENETTA inhibitor and calcium channel jam, lasix -Follow blood pressures DVT prophylaxis: heparin Discussed with: patient and nursing Anticipated discharge: in AM Anticipated discharge place: likely home A total of 25 minutes was spent on the care of this complex patient more than 50 % of the time was spent in counseling and care coordination.
[2018-09-22] MEDS: SODIUM CHLORIDE 0.9% 1,000 ML IV SCH (17:28)
[2018-09-22] MEDS ORDERED: BACLOFEN 10 MG TAB PO SCH (21:00)
[2018-09-23] MEDS: SODIUM CHLORIDE 0.9% 1,000 ML IV SCH (00:01)
[2018-09-23 00:54] VITALS: TEMP 97.8
[2018-09-23 04:52] VITALS: BP 113/64; PULSE 71; RESP 16
[2018-09-23] MEDS: KETOROLAC 30 MG/ML 1 ML VIAL IVP SCH (05:54)
--- NOTE | 2018-09-23 08:26 | XR ---
EXAMINATION TYPE: XR chest 2V DATE OF EXAM: 09/23/2018 HISTORY: shortness of breath. REFERENCE: Previous study dated 09/21/2018. FINDINGS: There is a minimally displaced fracture of the left seventh rib posterior laterally. A defi nite fracture is not clearly visualized on today's examination. There is a small left effusion. There is some atelectatic change present at the left lung base. There is a small right-sided effusion. The heart is not enlarged. Incidental note is made of previous interpedicular fusion of the lumbar spine . IMPRESSION: 1. FRACTURE OF THE LEFT SEVENTH RIB REDEMONSTRATED. 2. SMALL, BILATERAL PLEURAL EFFUSIONS. 3. LEFT BASILAR ATELECTASIS.
[2018-09-23 08:35] LABS: Calcium 9.2 mg/dL (8.4-10.2); Potassium 4.9 mmol/L (3.5-5.1)
[2018-09-23] MEDS: amLODIPine 5 MG TAB PO SCH (09:09)
[2018-09-23] MEDS: FUROSEMIDE 20 MG TAB PO SCH (09:09)
[2018-09-23] MEDS: Lifitegrast [Xiidra] BOTH EYES SCH (09:10)
[2018-09-23] MEDS: VITAMIN E (DL,TOCOPHERYL ACET) 400 UNIT CAP PO SCH (09:10)
[2018-09-23] MEDS: CHOLECALCIFEROL 1,000 UNIT TAB PO SCH (09:10)
[2018-09-23] MEDS: LISINOPRIL 20 MG TAB PO SCH (09:10)
[2018-09-23] MEDS: CARBIDOPA-LEVODOPA ER 50-200MG 1 EACH TABLET.ER PO SCH (09:10)
[2018-09-23] MEDS: METHOCARBAMOL 500 MG TAB PO SCH (09:10)
[2018-09-23] MEDS: HEPARIN SODIUM,PORCINE 5,000 UNIT/ML 1 ML VIAL SQ SCH (09:11)
[2018-09-23] MEDS: LIDOCAINE 5% PATCH TOPICAL SCH (09:11)
[2018-09-23] MEDS: HYDROcodone/APAP 5-325MG 1 EACH TAB PO PRN (09:14)
[2018-09-23] MEDS: Mirabegron [Myrbetriq] 50 MG PO SCH (09:40)
[2018-09-23] MEDS: Rasagiline Mesylate [Rasagiline Mesylate] 1 MG PO SCH (09:41)
--- NOTE | 2018-09-23 10:53 | P.PN ---
Subjective Progress Note Date: 09/23/18 Patient's doing very well today. Her pain is still there but tolerable. She is puling 1000cc on IS. She is ambulating in halls. Her son is at the bedside and states that she can go home with him. She is not requiring IV morphine Objective - Vital Signs Vital signs: Vital Signs Temp 97.8 F 09/23/18 04:51 Pulse 71 09/23/18 04:51 Resp 16 09/23/18 04:51 BP 113/64 09/23/18 04:51 Pulse Ox 95 09/23/18 04:51 Intake & Output 09/22/18 09/23/18 09/23/18 18:59 06:59 18:59 Intake Total 990 Balance 990 Intake: Intake, IV Titration 400 Amount Sodium Chloride 0.9% 1, 400 000 ml @ 50 mls/hr IV . Q20H [facility] Rx#:[id number] Oral 590 Other: Voiding Method Toilet Toilet Toilet # Voids 2 5 - Constitutional General appearance: Present: cooperative - Respiratory Details: nonlabored - Cardiovascular Rhythm: regular - Gastrointestinal Gastrointestinal Comment(s): S/NT/ND - Psychiatric Psychiatric: Present: A&O x's 3 - Labs CBC & Chem 7: 09/21/18 14:35 09/23/18 07:23 Labs: Abnormal Lab Results - Last 24 Hours (Table) 09/23/18 Range/Units 07:23 BUN 25 H (7-17) mg/dL Assessment and Plan Assessment: Minimally displaced left posterior ribs 7 and 8 Plan: Continue pain management, IS, Ambulate. Patient is stable for DC home with son today. She will follow up with her PCP within one week.
--- NOTE | 2018-09-23 11:10 | P.DS ---
Providers Date of admission: 09/21/18 17:31 Attending physician: Dominik Wei DO Consults: 09/21/18 16:41 Consult Physician Routine Consulting Provider: Maria R Gilmore Consult Reason/Comments: multiple rib fracture, displaced, fall Do you want consulting provider notified?: Yes, Notify in am 09/21/18 20:31 Consult Physician Routine Consulting Provider: Don Liu Consult Reason/Comments: contusion on lung Do you want consulting provider notified?: Yes Primary care physician: [facility] Course: Patient was admitted for pain control after a fall at home with minimally disp laced left rib fractures x 2. on 09/23/18 patient was doing well, using her IS and pain was controlled on oral medications. She was discharged home to her Sons house. She was ambulatory and walking in halls. She will follow up with PCP in 1-2 days Patient Condition at Discharge: Stable Plan - Discharge Summary New Discharge Prescriptions: New Hydrocodone/Acetaminophen [[place] 5-325] 1 tab PO Q4HR PRN 3 Days #30 tab PRN Reason: Pain Methocarbamol [Robaxin-750] 750 mg PO TID #30 tablet Lidocaine 5% Patch [Lidoderm] 1 patch TOPICAL DAILY #10 patch No Action Cholecalciferol [Vitamin D3] 3,000 unit PO DAILY amLODIPine BESYLATE/BENAZEPRIL [Lotrel 10-20 mg Capsule] 1 cap PO DAILY [place]-3 Fatty Acids/Fish Oil [Fish Oil 1,000 mg Softgel] 1 cap PO DAILY Furosemide [Lasix] 20 mg PO DAILY Vitamin E (Dl,Tocopheryl Acet) [Vitamin E] 400 unit PO DAILY Carbidopa/Levodopa [Sinemet CR 50-200 mg] 1 tab PO BID Mirabegron [Myrbetriq] 50 mg PO DAILY Baclofen [Lioresal] 10 mg PO HS Lifitegrast [Xiidra] 1 drop BOTH EYES BID Rasagiline Mesylate 1 mg PO DAILY Discharge Medication List Cholecalciferol [Vitamin D3] 3,000 unit PO DAILY 12/09/13 [History] Furosemide [Lasix] 20 mg PO DAILY 12/09/13 [History] [place]-3 Fatty Acids/Fish Oil [Fish Oil 1,000 mg Softgel] 1 cap PO DAILY 12/09/13 [History] amLODIPine BESYLATE/BENAZEPRIL [Lotrel 10-20 mg Capsule] 1 cap PO DAILY 12/09/13 [History] Carbidopa/Levodopa [Sinemet CR 50-200 mg] 1 tab PO BID 09/09/16 [History] Vitamin E (Dl,Tocopheryl Acet) [Vitamin E] 400 unit PO DAILY 09/09/16 [History] Baclofen [Lioresal] 10 mg PO HS 09/21/18 [History] Lifitegrast [Xiidra] 1 drop BOTH EYES BID 09/21/18 [History] Mirabegron [Myrbetriq] 50 mg PO DAILY 09/21/18 [History] Rasagiline Mesylate 1 mg PO DAILY 09/21/18 [History] Hydrocodone/Acetaminophen [[place] 5-325] 1 tab PO Q4HR PRN 3 Days #30 tab 09/23/18 [Rx] Lidocaine 5% Patch [Lidoderm] 1 patch TOPICAL DAILY #10 patch 09/23/18 [Rx] Methocarbamol [Robaxin-750] 750 mg PO TID #30 tablet 09/23/18 [Rx] Follow up Appointment(s)/Referral(s): Doroteo Roblero MD [Primary Care Provider] - 1-2 days Patient Instructions/Handouts: Rib Fracture (DC) Discharge Disposition: HOME SELF-CARE
--- NOTE | 2018-09-23 12:35 | P.PN ---
Subjective Progress Note Date: 09/23/18 On 09/23/2018, the patient has no complaints. She is doing well. She is ambulating. She is being considered for home discharge. She'll be given Ax[place] for pain control. She is using incentive spirometer. No other significant events. The electrodes are all within normal limits. Kidney function is also stable. Objective - Vital Signs Vital signs: Vital Signs Temp 97.8 F 09/23/18 04:51 Pulse 71 09/23/18 04:51 Resp 16 09/23/18 04:51 BP 113/64 09/23/18 04:51 Pulse Ox 95 09/23/18 04:51 Intake & Output 09/22/18 09/23/18 09/23/18 18:59 06:59 18:59 Intake Total 990 Balance 990 Intake: Intake, IV Titration 400 Amount Sodium Chloride 0.9% 1, 400 000 ml @ 50 mls/hr IV . Q20H [facility] Rx#:[id number] Oral 590 Other: Voiding Method Toilet Toilet Toilet # Voids 2 5 - Exam GENERAL EXAM: Alert, pleasant 88-year-old female fairly comfortable in no apparent distress. On room air. HEAD: Normocephalic. EYES: Normal reaction of pupils, equal size. NOSE: Clear with pink turbinates. THROAT: No erythema or exudates. NECK: No masses, no JVD. CHEST: No chest wall deformity. Tenderness over the left chest and back. LUNGS: Equal air entry with crackles in the left posterior base.. CVS: S1 and S2 normal with no audible murmur, regular rhythm. ABDOMEN: No hepatosplenomegaly, normal bowel sounds, no guarding or rigidity. SPINE: No scoliosis or deformity SKIN: No rashes CENTRAL NERVOUS SYSTEM: No focal deficits, tone is normal in all 4 extremities. EXTREMITIES: There is no peripheral edema. No clubbing, no cyanosis. Peripheral pulses are intac - Labs CBC & Chem 7: 09/21/18 14:35 09/23/18 07:23 Labs: Abnormal Lab Results - Last 24 Hours (Table) 09/23/18 Range/Units 07:23 BUN 25 H (7-17) mg/dL Assessment and Plan Plan: #1 Trauma with left rib fractures 7 and 8 and pulmonary contusion secondary to fall. Denies loss of consciousness. #2 Parkinson's disease with balance issues. #3 History of hypertension. #4 History of abdominal lymphoma, status post resection. #5 Lifelong nonsmoker. Plan Agree on home discharge on oral no clumping control. Continue using incentive spirometer. Resume outpatient medication. Follow-up with PCP.
--- NOTE | 2018-09-23 14:16 | P.PN ---
Subjective Progress Note Date: 09/23/18 (delayed charting seen at 1130) Principal diagnosis: fall and pain Patient is an 88-year-old female with a past medical history of Parkinson's disease, hypertension, and multiple falls who was brought into the emergency department after a fall at home. Patient had been using the bathroom when she fell and lost her balance. She had this our door with her left side of her chest. She denied any loss of consciousness. She has difficulty with ataxia and falls multiple times a day due to her Parkinson's disease. She recently completed outpatient physical therapy and reports a decrease in her falls. In the ER she underwent an extensive evaluation. Initial vital signs were within normal limits. Initial laboratory analysis showed an elevated BUN at [address] of the abdomen and pelvis demonstrated displaced left rib fractures with extension into the pleural space and left posterior chest and abdomen subcutaneous emphysema. Thoracic spine x-ray demonstrated no acute fracture or malalignment but multilevel degenerative disc disease. Lipid study showed minimally displaced acute fractures of ribs 7 and 8 on the left at the posterior lateral margin. There was a patchy opacity adjacent to the rib fractures likely representing pulmonary contusion. She was admitted to trauma surgery for further management we are asked to consult regarding her Parkinson's disease. Patient initially wanted to go to rehab therapy, however after discussion with patient she walks for long distances at home without any difficulty. Due to her Parkinson's disease she has frequent falls when trying to turn her pelvic, and walking through doorways. She just finished outpatient physical therapy. I discussed with her at length that she likely needs a more s upervised environment on a permanent basis, but that a short subacute rehab stay would likely not benefit her. She has agreed to go home with her son for the time being. They will then reconsider her continue to live at [facility] versus an assisted living or prison placement. Patient seen and examined at bedside. She reports that her pain is slightly worse than yesterday. She has been up ambulating to the bathroom. Her shortness of breath is somewhat better. No nausea or vomiting. Son at bedside and discussed plan of care in detail. I have recommended that she uses the p rescriber of oxygen as needed and not fixed intervals, and also discussed with her that she should not take Robaxin should not be combined with her baclofen that she takes at night in the dosage should be space out by at least 6 hours. Also warned her that taking the [place] may make her more sleepy or sedated and lead to increased falling. Patient son are aware. Will monitor this closely. Objective - Vital Signs Vital signs: Vital Signs Temp 97.8 F 09/23/18 04:51 Pulse 71 09/23/18 04:51 Resp 16 09/23/18 04:51 BP 113/64 09/23/18 04:51 Pulse Ox 95 09/23/18 04:51 Intake & Output 09/22/18 09/23/18 09/23/18 18:59 06:59 18:59 Intake Total 990 Balance 990 Intake: Intake, IV Titration 400 Amount Sodium Chloride 0.9% 1, 400 000 ml @ 50 mls/hr IV . Q20H [facility] Rx#:[id number] Oral 590 Other: Voiding Method Toilet Toilet Toilet # Voids 2 5 - Exam General: non toxic, no distress, appears at stated age Derm: warm, dry Head: atraumatic, normocephalic, symmetric Eyes: EOMI, no lid lag, anicteric sclera Mouth: no lip lesion, mucus membranes moist Cardiovascular: S1S2 reg, no murmur, positive posterior tibial pulse bilateral, Lungs:decreased breath sounds left base , no accessory muscle use Ext: no gross muscle atrophy, no edema, no contractures Neuro: CN II-XI grossly intact, choreaform movements of head and neck, Psych: Alert, oriented, appropriate affect - Labs CBC & Chem 7: 09/21/18 14:35 09/23/18 07:23 Labs: Abnormal Lab Results - Last 24 Hours (Table) 09/23/18 Range/Units 07:23 BUN 25 H (7-17) mg/dL Assessment and Plan Assessment: Rib fracture 7-8 due to mechanical fall -Fall precautions, PT/OT -Consult case management regarding possible need for placement -Pain control -Incentive spirometer- take home to use Parkinson's disease - follow with neurology - on baclofen, rasagiline, sinemet Hypertension -Continue with RENETTA inhibitor and calcium channel jam, lasix -Follow blood pressures Patient is medically optimized for discharge. Has had discussions with her and her son on to appropriately take [place], baclofen, and Robaxin. A total of 25 minutes was spent on the care of this complex patient more than 50% of the time was spent in counseling and care coordination.
== END 2018-09-23 13:52 | disposition home or self-care (01) ==
LOC: EC 13:19 → 3NMEDONC 17:31
PROVIDERS: ADMIT Student in an Organized Health Care Education/Training Program; ATTEND Student in an Organized Health Care Education/Training Program
DX: S22.42XA Multiple fractures of ribs, left side, initial encounter for closed fracture (principal); T79.7XXA Traumatic subcutaneous emphysema, initial encounter; E86.0 Dehydration; G20 Parkinson's disease; I10 Essential (primary) hypertension; M51.34 Other intervertebral disc degeneration, thoracic region; R29.6 Repeated falls; W01.0XXA Fall on same level from slipping, tripping and stumbling without subsequent striking against object, initial encounter; Y92.009 Unspecified place in unspecified non-institutional (private) residence as the place of occurrence of the external cause; Z79.899 Other long term (current) drug therapy; Z85.72 Personal history of non-Hodgkin lymphomas; Z90.710 Acquired absence of both cervix and uterus; Z88.8 Allergy status to other drugs, medicaments and biological substances; Z91.81 History of falling
CPT/HCPCS: 96376 ×3; 96361 ×2; 96372 ×2; 96375; 96374; 99285; 36415; 97162; 80053; 80048; 85025; 71101; 72070; 71046; 74177; G0378 ×3; J2270 ×2; J1644 ×2; J1885 ×2; Q9967

== ENCOUNTER → 2019-01-14 | Outpatient (CLI) | payer MEDICARE ==
--- NOTE | 2019-01-14 09:54 | FL ---
EXAMINATION TYPE: FL barium swallow DATE OF EXAM: 01/14/2019 CLINICAL HISTORY: Laryngeal reflux. Chronic laryngitis. TECHNIQUE: A double contrast esophagram is performed utilizing air and barium. A total of 2 minutes and 11 seconds of fluoroscopic time was utilized during procedure. 56 fluoroscopic images were saved during the exam. COMPARISON: None FINDINGS: The esophagus shows normal motility and emptying into the stomach in the upright position w ith tertiary contractions in the supine position. No evidence of hiatal hernia or stricture noted. M ild degree gastroesophageal reflux was seen during real time performance of this study in the supine position to the level of the distal esophagus. Vallecular retention of contrast was seen throughout t he exam. No gross evidence of aspiration or penetration. There are anterior projecting osteophytes of the cervical spine mildly impressing on the posterior esophagus. IMPRESSION: 1. Mild grade gastroesophageal reflux. 2. 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 Stasis o f contrast in the supine position throughout the esophagus. 3. Vallecular retention with both thick and thin barium consistency no gross evidence of aspiration o r penetration.
== END | disposition home or self-care (01) ==
LOC: RADUSWWP 08:45
PROVIDERS: ATTEND Otolaryngology
DX: K21.9 Gastro-esophageal reflux disease without esophagitis (principal); J37.0 Chronic laryngitis
CPT/HCPCS: 74220

== ENCOUNTER 2019-03-27 17:14 | Emergency (ER) | payer MEDICARE ==
--- NOTE | 2019-03-27 18:24 | CT ---
EXAMINATION TYPE: CT brain bhavik epps con DATE OF EXAM: 03/27/2019 COMPARISON: 09/09/2016 HISTORY: Fall. Neck pain. Headache. CT DLP: 1228.8 mGycm Automated exposure control for dose reduction was used. Multiple axial sections were obtained of the brain and cervical spine without contrast. FINDINGS: There is patchy hypodensity in the periventricular white matter. There is no mass effect nor midline shift. There is no sign of intracranial hemorrhage. The calvarium is intact. Cervical vertebra have fairly normal alignment. There is a few millimeter anterior subluxation of C6 in relation to C7. There is narrowing of the C5-6 disc space with spurring of the endplates. There is multilevel hypertrophic cervical facet arthropathy. Skull base is intact. There is no evidence of a fracture. IMPRESSION: Spondylotic changes in the cervical spine mainly at C5-6. No fracture seen. No change. Cerebral atrophy and chronic small vessel ischemia. No acute intracranial abnormality. No change.
--- NOTE | 2019-03-27 18:48 | ED ---
General Adult HPI - General Chief complaint: Fall Stated complaint: Fall, head injury Time Seen by Provider: 03/27/19 17:44 Source: patient, RN notes reviewed, old records reviewed Mode of arrival: ambulatory Limitations: no limitations - History of Present Illness Initial comments: Patient is a 88 year old female with history of Parkinson's disease. PAtient reports that she fell back today hitting her head on the corner of the wall. She reports she split the back of her head open. She had no loss of consciousness. Patient has no vomiting. She denies feeling dizzy or lightheaded or chest pain prior to the fall. She denies neck pain or back pain. She denies any other injury. - Related Data Home Medications Medication Instructions Recorded Confirmed Cholecalciferol [Vitamin D3] 3,000 unit PO DAILY 12/09/13 09/21/18 Furosemide [Lasix] 20 mg PO DAILY 12/09/13 09/21/18 [place]-3 Fatty Acids/Fish Oil [Fish 1 cap PO DAILY 12/09/13 09/21/18 Oil 1,000 mg Softgel] amLODIPine BESYLATE/BENAZEPRIL 1 cap PO DAILY 12/09/13 09/21/18 [Lotrel 10-20 mg Capsule] Carbidopa/Levodopa [Sinemet CR 1 tab PO BID 09/09/16 09/21/18 50-200 mg] Vitamin E (Dl,Tocopheryl Acet) 400 unit PO DAILY 09/09/16 09/21/18 [Vitamin E] Baclofen [Lioresal] 10 mg PO HS 09/21/18 09/21/18 Lifitegrast [Xiidra] 1 drop BOTH EYES BID 09/21/18 09/21/18 Mirabegron [Myrbetriq] 50 mg PO DAILY 09/21/18 09/21/18 Rasagiline Mesylate 1 mg PO DAILY 09/21/18 09/21/18 Previous Rx's Medication Instructions Recorded Hydrocodone/Acetaminophen [[place] 1 tab PO Q4HR PRN 3 Days #30 tab 09/23/18 5-325] Lidocaine 5% Patch [Lidoderm] 1 patch TOPICAL DAILY #10 patch 09/23/18 Methocarbamol [Robaxin-750] 750 mg PO TID #30 tablet 09/23/18 Allergies Allergy/AdvReac Type Severity Reaction Status Date / Time oxybutynin chloride Allergy Rash/Hives Verified 03/27/19 17:28 [From Ditropan] Review of Systems ROS Statement: Those systems with pertinent positive or pertinent negative responses have been documented in the HPI. ROS Other: All systems not noted in ROS Statement are negative. Past Medical History Past Medical History: Hypertension Additional Past Medical History / Comment(s): parkinson's History of Any Multi-Drug Resistant Organisms: None Reported Past Surgical History: Appendectomy, Back Surgery, Hysterectomy, Tonsillectomy Additional Past Surgical History / Comment(s): History of abdominal lymphoma, status post resection Past Psychological History: No Psychological Hx Reported Smoking Status: Never smoker Past Alcohol Use History: Rare Past Drug Use History: None Reported - Past Family History Mother Family Medical History: No Reported History General Exam - General Exam Comments Initial Comments: 88 year female no distress. Limitations: no limitations General appearance: alert, in no apparent distress Head exam: Present: atraumatic, normocephalic, normal inspection, other (4cm linear laceration over posterior scalp) Eye exam: Present: normal appearance, PERRL, EOMI. Absent: scleral icterus, conjunctival injection, periorbital swelling ENT exam: Present: normal exam, mucous membranes moist Neck exam: Present: normal inspection. Absent: tenderness, meningismus, lymphadenopathy Respiratory exam: Present: normal lung sounds bilaterally. Absent: respiratory distress, wheezes, rales, rhonchi, stridor Cardiovascular Exam: Present: regular rate, normal rhythm, normal heart sounds. Absent: systolic murmur, diastolic murmur, rubs, gallop, clicks GI/Abdominal exam: Present: soft, normal bowel sounds. Absent: distended, tenderness, guarding, rebound, rigid Extremities exam: Present: normal inspection, full ROM, normal capillary refill. Absent: tenderness, pedal edema, joint swelling, calf tenderness Back exam: Present: normal inspection Neurological exam: Present: alert, oriented X3, CN II-XII intact Psychiatric exam: Present: normal affect, normal mood Skin exam: Present: warm, dry, intact, normal color. Absent: rash Course Vital Signs 03/27/19 03/27/19 17:26 19:11 Temperature 97.7 F 97.6 F Pulse Rate 83 62 Respiratory 20 18 Rate Blood Pressure 155/73 161/71 O2 Sat by Pulse 98 100 Oximetry Procedures - Laceration Laceration #1 Site: scalp Size (cm): 4 Description: linear Depth: simple, single layer Pre-repair: wound explored, irrigated extensively Type of Sutures: other (staple) Size of Sutures: other (3) Technique: simple, interrupted Patient Tolerated Procedure: well, no complications Medical Decision Making - Medical Decision Making 88 year old female with Parkinson''s presents after fall and hitting head. She has no neurological deficits. She is not on blood thinner. Patient has 4cm linear laceration and was closed with [address] brain and C-spine is negative for acute process. Discussed return parameters. Patient advised to have follow up with PCP and return parameters discussed. - Radiology Data Radiology results: report reviewed Spondylitic changes of cervical cervical spine mainly C5-C6. No fracture seen. No changes. Cervical atrophy and chronic small vessel ischemia. No acute cranial malate. No changes. Disposition Clinical Impression: Scalp laceration, Head injury Disposition: HOME SELF-CARE Condition: Good Instructions (If sedation given, give patient instructions): Head Injury (ED), Staple Care (ED) Additional Instructions: Please return to the emergency room in 8-10 days to have chun removed. Please leave wound covered for the first 24-48 hours and then leave open to air after that time. Please use clean soap and water to clean the suture area to prevent scabbing over the top of your chun. Please watch for any signs of infection which may include but not limited to increased pain, swelling, redness, fever or chills. Please return to the emergency room if any signs of infection do occur. Please return to the emergency room for any other concerns or complications. Patient should be monitored for the first 24 hours in regards to head injury. Return to emergency department if there is any signs of altered mental status or vomiting. Recommended taking Motrin or Tylenol for any headache or pain. Icing the area of swelling. Is patient prescribed a controlled substance at d/c from ED?: No Referrals: Doroteo Roblero MD [Primary Care Provider] - 1-2 days Time of Disposition: 18:48
[2019-03-27] MEDS ORDERED: ACETAMINOPHEN TAB 500 MG TAB PO STA (19:02)
[2019-03-27 19:21] VITALS: BP 161/71; PULSE 62; RESP 18; TEMP 97.6
== END 2019-03-27 19:20 | disposition home or self-care (01) ==
LOC: EC 17:14
DX: S01.01XA Laceration without foreign body of scalp, initial encounter (principal); I10 Essential (primary) hypertension; G20 Parkinson's disease; Z90.49 Acquired absence of other specified parts of digestive tract; Z90.710 Acquired absence of both cervix and uterus; Z98.890 Other specified postprocedural states; Z85.72 Personal history of non-Hodgkin lymphomas; Z79.899 Other long term (current) drug therapy; Z88.8 Allergy status to other drugs, medicaments and biological substances; W18.39XA Other fall on same level, initial encounter; W22.01XA Walked into wall, initial encounter; Y92.009 Unspecified place in unspecified non-institutional (private) residence as the place of occurrence of the external cause
CPT/HCPCS: 12002; 70450; 72125; 99284

== ENCOUNTER → 2019-08-07 | Outpatient (CLI) | payer MEDICARE ==
--- NOTE | 2019-08-07 14:14 | XR ---
EXAM TYPE: LUMBAR SPINE X RAY SERIES COMPARISON: 12/15/2017 HISTORY: Lower back pain TECHNIQUE: 3 views are submitted. FINDINGS: Postsurgical change with slight curvature. Surgical clips in the upper abdomen. Severe degenerative d isc disease at L1-L2. Hypertrophic spurring. Findings are similar to the prior exam. Retrolisthesis o f L2 on L3 stable. Measures approximately 7 mm. IMPRESSION: 1. Postoperative changes as discussed above. 2. Severe degenerative disc disease L-1-L2.
--- NOTE | 2019-08-07 14:16 | XR ---
EXAMINATION TYPE: XR Hip Complete RT DATE OF EXAM: 08/07/2019 COMPARISON: 12/15/2017 HISTORY: Pain . TECHNIQUE: 2 views submitted FINDINGS: There is no evidence of erosive change or acute fracture. moderate concentric narrowing of the joint space. No acute fracture or dislocation. Hypertrophic change of the acetabulum could be associated with femoral acetabular impingement. IMPRESSION: 1. No evidence of acute fracture or dislocation. 2. Moderate osteoarthritis. Correlate for femoral acetabular impingement.
== END | disposition home or self-care (01) ==
LOC: RADXRMAIN 13:46
PROVIDERS: ATTEND Psychiatry & Neurology Neurology
DX: M51.36 Other intervertebral disc degeneration, lumbar region (principal); Z98.890 Other specified postprocedural states; M16.11 Unilateral primary osteoarthritis, right hip
CPT/HCPCS: 72100; 73502

== ENCOUNTER → 2019-09-17 | Outpatient (CLI) | payer MEDICARE ==
--- NOTE | 2019-09-17 22:13 | MR ---
MR brain without contrast HISTORY: Cerebral infarction Multiplanar multisequence imaging obtained through the brain Correlation CT brain 03/27/2019 Cortical atrophy is present. Confluent and scattered hyperintensities are present and inversion recov tiffanie T2-weighted sequences in the periventricular, subcortical, pericallosal and juxtacortical white m atter. Corpus callosum, pituitary, cervical medullary junction are within normal limits. There is no restricted diffusion. No hemorrhage or hydrocephalus. There are normal vascular flow voids. Orbits sh ow symmetric appearance. IMPRESSION: Age-related changes of atrophy and chronic small vessel ischemia.
== END | disposition home or self-care (01) ==
LOC: RADMRIMAIN 17:56
PROVIDERS: ATTEND Psychiatry & Neurology Neurology
DX: G31.1 Senile degeneration of brain, not elsewhere classified (principal); I67.82 Cerebral ischemia
CPT/HCPCS: 70551

== ENCOUNTER → 2020-06-11 | Outpatient (CLI) | payer MEDICARE ==
[~2020-06-11] MED LIST: REGADENOSON 0.4 MG/5 ML SYRINGE IV PRN
--- NOTE | 2020-06-11 12:35 | P.STRESS ---
- Stress Test Note Stress Test Results/Findings: Exam Performed: NM stress lexiscan cardiolite Exam Date: 06/11/20 Reason for Exam: SHORTNESS OF BREATH Height: 4 ft 11 in Weight: 52.163 kg Protocol: LEXISCAN Stage: NA Duration of Exercise: NA Resting Heart Rate: 74 Resting Blood Pressure: 137/62 Maximum Achieved Heart Rate: 86 Maximum Achieved Blood Pressure: 143/57 85% PMHR: 112 100% PMHR: 132 METS: NA Technologist Comment: Stress Test Results/Findings: At baseline EKG showed normal sinus rhythm, normal axis, mild 0.[address] depressions to 3 aVF which is nonspecific. Patient recieved IV infusion of Lexiscan 0.4mg and at peak infusion EKG showed no significant change from baseline. Conclusions: 1. Nondiagnostic EKG response to Lexiscan secondary to baseline abnormalities. 2. Nuclear imaging to be reported separately.
--- NOTE | 2020-06-11 16:25 | NM ---
EXAMINATION TYPE: NM stress lexiscan cardiolite DATE OF EXAM: 06/11/2020 COMPARISON: NONE HISTORY: Dyspnea TECHNIQUE: After the intravenous administration of 9.7 mCi Tc 99m Sestamibi - Cardiolite resting SPE CT images acquired 55 minutes post injection. The patient received 0.4mg Lexiscan, 24.4 mCi Tc 99m Sestamibi - Stress images obtained [address] injection Technologist notes that patient was scanned with arms down during imaging. FINDINGS: Review of stress and rest SPECT images demonstrates no distinct perfusion abnormality. Gated analysi s shows normal wall motion with an estimated left ventricular ejection fraction of 96 %. TID 1.00 IMPRESSION: 1. No scintigraphic evidence for reversible ischemia. 2. Abnormally high ejection fraction of 96%. Recommend correlation with echocardiogram. Differential includes hypertrophic cardiomyopathy. Report was faxed by radiology front end engineer at time of dictation to ordering doctor's office.
== END | disposition home or self-care (01) ==
LOC: RADNMMAIN 08:08
PROVIDERS: ATTEND Internal Medicine
DX: R06.02 Shortness of breath (principal); R06.00 Dyspnea, unspecified
CPT/HCPCS: 93017; 78452; A9500; J2785

== ENCOUNTER → 2020-07-16 | Outpatient (CLI) | payer MEDICARE ==
--- NOTE | 2020-07-16 11:37 | XR ---
EXAMINATION TYPE: XR chest 2V DATE OF EXAM: 07/16/2020 COMPARISON: 09/23/2018 TECHNIQUE: PA and lateral views submitted. HISTORY: Cough FINDINGS: The lungs are clear and there is no pneumothorax, pleural effusion, or focal pneumonia. Chronic rib deformities are seen the heart size is normal. No overt failure. Arthropathy of the shoulders. Biapi tyler pleural thickening. Degenerative change of the spine with postsurgical changes. IMPRESSION: 1. No acute process.
--- NOTE | 2020-07-16 11:38 | XR ---
EXAMINATION TYPE: XR femur LT DATE OF EXAM: 07/16/2020 CLINICAL HISTORY: Pain TECHNIQUE: Two views of the left femur are obtained. COMPARISON: None FINDINGS: There is no acute fracture or dislocation seen in the left femur. There is moderate concen tric narrowing of the hip joints. Mild diffuse osteopenia. Hypertrophic change of patellofemoral join t. 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 IMPRESSION: 1. Diffuse osteopenia with arthropathy.
--- NOTE | 2020-07-16 11:39 | XR ---
EXAMINATION TYPE: XR Hip Complete LT DATE OF EXAM: 07/16/2020 COMPARISON: NONE HISTORY: Pain TECHNIQUE: 2 views submitted FINDINGS: There is no evidence of erosive change or acute fracture. Moderate concentric narrowing of the hip popeye int with hypertrophic change of the acetabulum. IMPRESSION: 1. No evidence of acute fracture or dislocation. 2. Arthropathy correlate for femoral acetabular impingement.
== END | disposition home or self-care (01) ==
LOC: RADXRMAIN 10:57
PROVIDERS: ATTEND Internal Medicine
DX: R05 Cough (principal); M16.12 Unilateral primary osteoarthritis, left hip; M85.852 Other specified disorders of bone density and structure, left thigh
CPT/HCPCS: 71046; 73502

== ENCOUNTER 2020-08-25 07:48 | Observation (INO) | payer MEDICARE ==
[2020-08-25] MEDS ORDERED: SODIUM CHLORIDE 0.9% 1,000 ML IV STA (08:29)
[2020-08-25] MEDS ORDERED: SODIUM CHLORIDE 0.9% 500 ML 500 ML IV STA (08:29)
--- NOTE | 2020-08-25 08:38 | ED ---
General Adult HPI - General Chief complaint: Fall Stated complaint: Fall Time Seen by Provider: 08/25/20 07:48 Source: patient, RN notes reviewed, old records reviewed Mode of arrival: EMS Limitations: no limitations - History of Present Illness Initial comments: This is a 89-year-old female was brought in by EMS after a fall. She states her legs gave out on her. She did not eat today. She did not take her blood pressure medication today. She denies any fevers chills nausea vomiting sweats cough or dysuria. He states he always had left hip pain was worse today. She states she does not believe she broke anything all over. Does complains some left-sided neck pain. She is not. That hit her neck she states. No complains modifying factors other than she just feels weak - Related Data Home Medications Medication Instructions Recorded Confirmed Furosemide [Lasix] 20 mg PO Q48H 12/09/13 08/25/20 amLODIPine BESYLATE/BENAZEPRIL 1 cap PO DAILY 12/09/13 08/25/20 [Lotrel 10-20 mg Capsule] Lifitegrast [Xiidra] 1 drop BOTH EYES BID 09/21/18 08/25/20 Mirabegron [Myrbetriq] 50 mg PO DAILY 09/21/18 08/25/20 Carbidopa-Levodopa ER 50-200Mg 1 tab PO HS 08/25/20 08/25/20 [Sinemet ER 50-200] Fluticasone Nasal [place] [Flonase 1 spr EA NOSTRIL BID 08/25/20 08/25/20 Nasal [place]] Metoprolol Succinate [Toprol XL] 50 mg PO DAILY 08/25/20 08/25/20 Omeprazole Magnesium [PriLOSEC OTC] 20 mg PO DAILY PRN 08/25/20 08/25/20 Allergies Allergy/AdvReac Type Severity Reaction Status Date / Time oxybutynin chloride Allergy Rash/Hives Verified 08/25/20 11:33 [From Ditropan] Review of Systems ROS Statement: Those systems with pertinent positive or pertinent negative responses have been documented in the HPI. ROS Other: All systems not noted in ROS Statement are negative. Past Medical History Past Medical History: Hypertension Additional Past Medical History / Comment(s): parkinson's History of Any Multi-Drug Resistant Organisms: None Reported Past Surgical History: Appendectomy, Back Surgery, Hysterectomy, Tonsillectomy Additional Past Surgical History / Comment(s): History of abdominal lymphoma, status post resection Past Psychological History: No Psychological Hx Reported Smoking Status: Never smoker Past Alcohol Use History: Rare Past Drug Use History: None Reported - Past Family History Mother Family Medical History: No Reported History General Exam - General Exam Comments Initial Comments: This is a well-developed sec appearing female who is awake alert oriented 3 Limitations: no limitations General appearance: alert, in no apparent distress Head exam: Present: atraumatic, normocephalic, normal inspection Eye exam: Present: normal appearance, PERRL, EOMI. Absent: scleral icterus, conjunctival injection, periorbital swelling ENT exam: Present: mucous membranes dry Neck exam: Present: normal inspection, tenderness, other (Patient over the left trapezius musculature no midline spinous process tenderness. No stridor JVD or bruits). Absent: meningismus, lymphadenopathy Respiratory exam: Present: normal lung sounds bilaterally. Absent: respiratory distress, wheezes, rales, rhonchi, stridor Cardiovascular Exam: Present: regular rate, normal rhythm, normal heart sounds. Absent: systolic murmur, diastolic murmur, rubs, gallop, clicks GI/Abdominal exam: Present: soft, normal bowel sounds. Absent: distended, tenderness, guarding, rebound, rigid Extremities exam: Present: normal inspection, tenderness (Tennis palpation of left hip no definite step-off or crepitation. No definitive shortening or rotation. Decreased range of motion secondary to pain), normal capillary refill. Absent: pedal edema, joint swelling, calf tenderness Back exam: Present: normal inspection Neurological exam: Present: alert, oriented X3, CN II-XII intact Psychiatric exam: Present: normal affect, normal mood Skin exam: Present: warm, dry, intact, normal color. Absent: rash Course Vital Signs 08/25/20 08/25/20 08/25/20 07:54 10:14 11:25 Temperature 98.5 F Pulse Rate 63 65 66 Respiratory 16 16 15 Rate Blood Pressure 194/71 180/72 158/81 O2 Sat by Pulse 96 97 97 Oximetry 08/25/20 12:53 Temperature Pulse Rate 61 Respiratory 18 Rate Blood Pressure 157/63 O2 Sat by Pulse 96 Oximetry Medical Decision Making - Medical Decision Making Reevaluation the patient he does have evidence of urinary tract infection. He does demonstrate evidence of some weakness though no focal weakness. She will be admitted for IV hydration as well as IV antibiotics. I did discuss the case with Dr. Montiel - Lab Data Result diagrams: 08/25/20 09:10 08/25/20 09:10 Lab Results 08/25/20 08/25/20 08/25/20 Range/Units 09:10 09:10 09:10 WBC 11.7 H (3.8-10.6) k/uL RBC 4.32 (3.80-5.40) m/uL Hgb 14.2 (11.4-16.0) gm/dL Hct 40.2 (34.0-46.0) % MCV 93.2 (80.0-100.0) fL MCH 32.8 (25.0-35.0) pg MCHC 35.2 (31.0-37.0) g/dL RDW 12.2 (11.5-15.5) % Plt Count 310 (150-450) k/uL MPV 8.4 Neutrophils % 79 % Lymphocytes % 10 % Monocytes % 8 % Eosinophils % 1 % Basophils % 1 % Neutrophils # 9.3 H (1.3-7.7) k/uL Lymphocytes # 1.2 (1.0-4.8) k/uL Monocytes # 1.0 (0-1.0) k/uL Eosinophils # 0.1 (0-0.7) k/uL Basophils # 0.1 (0-0.2) k/uL Sodium 134 L (137-145) mmol/L Potassium 4.2 (3.5-5.1) mmol/L Chloride 103 (98-107) mmol/L Carbon Dioxide 26 (22-30) mmol/L Anion Gap 5 mmol/L BUN 17 (7-17) mg/dL Creatinine 0.87 (0.52-1.04) mg/dL Est GFR (CKD-EPI)AfAm 69 (>60 ml/min/1.73 sqM) Est GFR (CKD-EPI)NonAf 60 (>60 ml/min/1.73 sqM) Glucose 105 H (74-99) mg/dL Calcium 9.6 (8.4-10.2) mg/dL Magnesium 2.0 (1.6-2.3) mg/dL Total Bilirubin 0.8 (0.2-1.3) mg/dL AST 25 (14-36) U/L ALT 6 (4-34) U/L Alkaline Phosphatase 65 (38-126) U/L Creatine Kinase 58 (30-135) U/L Troponin I (0.000-0.034) ng/mL Total Protein 6.8 (6.3-8.2) g/dL Albumin 4.1 (3.5-5.0) g/dL Urine Color Yellow Urine Appearance Cloudy H (Clear) Urine pH 7.0 (5.0-8.0) Ur Specific [place] 1.012 (1.001-1.035) Urine Protein Negative (Negative) Urine Glucose (UA) Negative (Negative) Urine Ketones Negative (Negative) Urine Blood Negative (Negative) Urine Nitrite Positive H (Negative) Urine Bilirubin Negative (Negative) Urine Urobilinogen <2.0 (<2.0) mg/dL Ur Leukocyte Esterase Large H (Negative) Urine RBC 1 (0-5) /hpf Urine WBC 30 H (0-5) /hpf Ur Squamous Epith Cells <1 (0-4) /hpf Urine Bacteria Moderate H (None) /hpf Urine Mucus Rare H (None) /hpf 08/25/20 Range/Units 09:10 WBC (3.8-10.6) k/uL RBC (3.80-5.40) m/uL Hgb (11.4-16.0) gm/dL Hct (34.0-46.0) % MCV (80.0-100.0) fL MCH (25.0-35.0) pg MCHC (31.0-37.0) g/dL RDW (11.5-15.5) % Plt Count (150-450) k/uL MPV Neutrophils % % Lymphocytes % % Monocytes % % Eosinophils % % Basophils % % Neutrophils # (1.3-7.7) k/uL Lymphocytes # (1.0-4.8) k/uL Monocytes # (0-1.0) k/uL Eosinophils # (0-0.7) k/uL Basophils # (0-0.2) k/uL Sodium (137-145) mmol/L Potassium (3.5-5.1) mmol/L Chloride (98-107) mmol/L Carbon Dioxide (22-30) mmol/L Anion Gap mmol/L BUN (7-17) mg/dL Creatinine (0.52-1.04) mg/dL Est GFR (CKD-EPI)AfAm (>60 ml/min/1.73 sqM) Est GFR (CKD-EPI)NonAf (>60 ml/min/1.73 sqM) Glucose (74-99) mg/dL Calcium (8.4-10.2) mg/dL Magnesium (1.6-2.3) mg/dL Total Bilirubin (0.2-1.3) mg/dL AST (14-36) U/L ALT (4-34) U/L Alkaline Phosphatase (38-126) U/L Creatine Kinase (30-135) U/L Troponin I <0.012 (0.000-0.034) ng/mL Total Protein (6.3-8.2) g/dL Albumin (3.5-5.0) g/dL Urine Color Urine Appearance (Clear) Urine pH (5.0-8.0) Ur Specific [place] (1.001-1.035) Urine Protein (Negative) Urine Glucose (UA) (Negative) Urine Ketones (Negative) Urine Blood (Negative) Urine Nitrite (Negative) Urine Bilirubin (Negative) Urine Urobilinogen (<2.0) mg/dL Ur Leukocyte Esterase (Negative) Urine RBC (0-5) /hpf Urine WBC (0-5) /hpf Ur Squamous Epith Cells (0-4) /hpf Urine Bacteria (None) /hpf Urine Mucus (None) /hpf - Radiology Data Radiology results: report reviewed (Imaging reviewed no acute findings), image reviewed Disposition Clinical Impression: Fall, Urinary tract infection, Contusion of left hip, Weakness Disposition: ADMITTED IP TO THIS [facility] Condition: Fair Referrals: Micky Hendrix MD [Primary Care Provider] - 1-2 days
[2020-08-25 09:24] LABS: Basophils # (A) 0.1 k/uL (0-0.2); Basophils % (A) 1 %; Eosinophils # (A) 0.1 k/uL (0-0.7); Eosinophils % (A) 1 %; HCT 40.2 % (34.0-46.0); HGB 14.2 gm/dL (11.4-16.0); Lymphocytes # (A) 1.2 k/uL (1.0-4.8); Lymphocytes % (A) 10 %; MCH 32.8 pg (25.0-35.0); MCHC 35.2 g/dL (31.0-37.0); MCV 93.2 fL (80.0-100.0); Mean Platelet Volume 8.4; Monocytes % (A) 8 %; Neutrophils # (A) 9.3 k/uL (1.3-7.7); Neutrophils % (A) 79 %; Platelet Count 310 k/uL (150-450); RBC 4.32 m/uL (3.80-5.40); RDW 12.2 % (11.5-15.5); WBC 11.7 k/uL (3.8-10.6)
[2020-08-25] MEDS ORDERED: KETOROLAC 15 MG/ML 1 ML VIAL IVP STA (09:56)
[2020-08-25 10:01] LABS: Albumin 4.1 g/dL (3.5-5.0); Calcium 9.6 mg/dL (8.4-10.2); Potassium 4.2 mmol/L (3.5-5.1); Total Bilirubin 0.8 mg/dL (0.2-1.3); Total Protein 6.8 g/dL (6.3-8.2)
--- NOTE | 2020-08-25 10:15 | XR ---
EXAMINATION TYPE: XR chest 2V DATE OF EXAM: 08/25/2020 COMPARISON: 07/16/2020 HISTORY: weakness TECHNIQUE: Frontal and lateral views of the chest are obtained. FINDINGS: There is no focal air space opacity, pleural effusion, or pneumothorax seen. The cardiac silhouette size is within normal limits. The osseous structures are intact. IMPRESSION: No acute cardiopulmonary process.
--- NOTE | 2020-08-25 10:19 | XR ---
EXAMINATION TYPE: XR cervical spine comp DATE OF EXAM: 08/25/2020 COMPARISON: None HISTORY: Pain after fall TECHNIQUE: 5 views cervical spine FINDINGS: Prevertebral space is normal. There is loss of disc height at C5-6. Anterior vertebral body spurring is present C5 and C6. Posterior spinal lamellar line is intact. Facet degenerative changes are present. Foraminal narrowing on the right is present C5-6 C6-7. Some foraminal narrowing is also present C5-6 C6-7 on the left odontoid is some limitation with overlying occiput. IMPRESSION: 1. Moderate degenerative changes through the cervical spine. 2. No acute osseous abnormality radiographically apparent.
--- NOTE | 2020-08-25 10:21 | XR ---
EXAMINATION TYPE: XR Hip LT and AP Pelvis DATE OF EXAM: 08/25/2020 COMPARISON: Left femur and hip 07/16/2020 HISTORY: Trauma and pain TECHNIQUE: A single AP view of the pelvis is obtained. Two views of the left hip are obtained. FINDINGS: There is no acute fracture/dislocation evident in the pelvis. The hip and sacroiliac join ts appear symmetric and unremarkable. The overlying soft tissue appears unremarkable. Two views of left hip show no acute fracture or dislocation. No focal lytic or sclerotic lesion seen in the proximal left femur. The overlying soft tissue is unremarkable. Postop changes are again no mikael to the lumbar spine, there are degenerative disc changes. Some mild spurring, osteoarthritic levine ge also noted in the left hip, concentric narrowing could be indicative of femoral acetabular impinge ment. IMPRESSION: There is no acute fracture or dislocation in the pelvis or left hip.
[2020-08-25 11:58] LABS: Appearance,Urine Cloudy (Clear); Bacteria,Urine Moderate /hpf; Bilirubin,Urine Negative (Negative); Blood,Urine Negative (Negative); Color,Urine Yellow; Glucose,Urine (UA) Negative (Negative); Ketones,Urine Negative (Negative); Leukocyte Esterase,Urine Large (Negative); Mucus,Urine Rare /hpf; Nitrite,Urine Positive (Negative); Protein,Urine Negative (Negative); RBC,Urine 1 /hpf (0-5); Specific Gravity,Urine 1.012 (1.001-1.035); Squamous Epithelial Cell,Urine <1 /hpf (0-4); Urobilinogen,Urine <2.0 mg/dL (<2.0); WBC,Urine 30 /hpf (0-5)
[2020-08-25] MEDS ORDERED: cefTRIAXone IN SWFI 1,000 MG/10 ML SYRINGE IVP STA (12:37)
[2020-08-25] MEDS ORDERED: NALOXONE 0.4 MG/ML 1 ML VIAL IV PRN (14:32)
[2020-08-25] MEDS ORDERED: ONDANSETRON 4 MG/2 ML VIAL IVP PRN (14:32)
[2020-08-25] MEDS ORDERED: MORPHINE SULFATE 2 MG/ML SYRINGE IV PRN (17:38)
[2020-08-25] MEDS ORDERED: HYDROcodone/APAP 5-325MG 1 EACH TAB PO PRN (17:38)
[2020-08-25] MEDS ORDERED: ACETAMINOPHEN TAB 325 MG TAB PO PRN (17:38)
[2020-08-25] MEDS ORDERED: NON FORMULARY DRUG (Omeprazole Magnesium [Prilosec Otc] 20 MG Tablet.Dr) PO PRN (18:10)
--- NOTE | 2020-08-25 18:17 | P.HPIM ---
History of Present Illness H&P Date: 08/25/20 Patient is an 89-year-old female with a history of Parkinson's, hypertension, and prior lymphoma status post resection who presented to the ER after a fall at home with left hip pain. Chest x-ray with no acute cardiopulmonary process. Left hip x-ray showed no acute fracture or dislocation in the hip or pelvis. Cervical spine x-ray shows moderate degenerative changes throughout the cervical spine. There was concern for possible urinary tract infection and she was started on Rocephin. Arrangements are made for observation as the patient was unable to ambulate independently. Patient seen and examined at bedside. She reports that she follow last night when she went to get up and landed on her right side. She again went to get up today and fell. She again landed on her right side. She was so weak she was unable to the floor she pulled herself to the bathroom and still was unable to g et to the toilet. She then used her life alert for help. She denies any lightheadedness, dizziness, unusual shortness of breath, or chest pain with these falls. She does feel that she has had more freezing, slowed movements, and rigidity recently from her Parkinson's. She used to take her Sinemet twice daily but was dropped down to once daily at some point. She also recently was placed on Ambien for difficulty sleeping. She was subsequently stopped that medication but has not yet started her mirtazapine. She now complains of left hip pain, inability to stand, and difficulty raising her left leg. Typically her right side is worse for her Parkinson's disease. She uses a rolling walker at home as well as a lift chair. She denies any recent cough, cold, fever, flu, nausea, vomiting, diarrhea, fevers, chills, or dysuria. She has chronic constipation which is unchanged. We discussed that Sinemet sometimes be stimulating and it may be best to take this in the morning of the typically helps with movement and then wears off versus taking it at night which she is currently doing. We also discussed the importance of avoiding Ambien which can be sedative and increased falls. Pertinent positives and negatives as discussed in HPI, a complete review of systems was performed and all other systems are negative. General: non toxic, no distress, appears at stated age Derm: warm, dry Head: atraumatic, normocephalic, symmetric Eyes: EOMI, no lid lag, anicteric sclera, pupils equal round reactive to light ENT: Nose and ears atraumatic, no thrush, no pharyngeal erythema Neck: No thyromegaly, no cervical lymphadenopathy, trachea midline, supple Mouth: no lip lesion, mucus membranes moist Cardiovascular: S1S2 reg, no murmur, positive posterior tibial pulse bilateral, no edema, capillary refill less than 2 seconds Lungs: clear to ascultation bilateral, no ronchi, no rales, no wheeze, no accessory muscle use Abdominal: soft, nontender to palpation, no guarding, no appreciable organomegaly, normal bowel sounds Ext: no gross muscle atrophy, muscle strength muscle strength 5 out of 5 in all 4 extremities, no contractures Neuro: CN II-XI grossly intact, light touch intact all 4 extremities, finger to nose within normal limits, Psych: Alert, oriented, appropriate affect Assessment and plan: Left hip contusion status post fall - Pain control - PT/OT evaluation - check CT hip with negative x-ray - if no improvement in AM consider ortho consult. Bursitis vs IT tendonitis vs fracture Parkinson's disease -PT/OT evaluation -Resume Sinemet Hypertensive urgency -Likely pain mediated -Resume amlodipine, Benzapril, and Toprol -Follow blood pressure GERD -PPI The patient is placed in observation with an anticipated less than 2 midnight stay for evaluation of fall with left hip pain. Surrogate decision-maker: Son DVT prophylaxis: SCDs Discussed with: Patient, Son Anticipated discharge date: in AM Anticipated discharge place: home A total of 65 minutes was spent on the care of this complex patient more than 50% of the time was spent in counseling and care coordination. Past Medical History Past Medical History: Hypertension Additional Past Medical History / Comment(s): parkinson's, GERD, Overactive bladder, "thickening of the heart muscle" History of Any Multi-Drug Resistant Organisms: None Reported Past Surgical History: Appendectomy, Back Surgery (X2), Hysterectomy, Tonsillectomy Additional Past Surgical History / Comment(s): History of abdominal lymphoma, status post resection Past Psychological History: No Psychological Hx Reported Smoking Status: Never smoker Past Alcohol Use History: Rare Past Drug Use History: None Reported Additional History: walker, life alert, chair lift, blood pressure cuff, nebulizer - Past Family History Mother Family Medical History: No Reported History Medications and Allergies Home Medications Medication Instructions Recorded Confirmed Type Furosemide [Lasix] 20 mg PO Q48H 12/09/13 08/25/20 History amLODIPine BESYLATE/BENAZEPRIL 1 cap PO DAILY 12/09/13 08/25/20 History [Lotrel 10-20 mg Capsule] Lifitegrast [Xiidra] 1 drop BOTH EYES BID 09/21/18 08/25/20 History Mirabegron [Myrbetriq] 50 mg PO DAILY 09/21/18 08/25/20 History Carbidopa-Levodopa ER 50-200Mg 1 tab PO HS 08/25/20 08/25/20 History [Sinemet ER 50-200] Fluticasone Nasal [place] [Flonase 1 spr EA NOSTRIL BID 08/25/20 08/25/20 History Nasal [place]] Metoprolol Succinate [Toprol XL] 50 mg PO DAILY 08/25/20 08/25/20 History Omeprazole Magnesium [PriLOSEC OTC] 20 mg PO DAILY PRN 08/25/20 08/25/20 History Allergies Allergy/AdvReac Type Severity Reaction Status Date / Time oxybutynin chloride Allergy Rash/Hives Verified 08/25/20 11:33 [From Ditropan] Physical Exam Osteopathic Statement: *. No significant issues noted on an osteopathic structural exam other than those noted in the History and Physical/Consult. Vitals: Vital Signs Temp Pulse Resp BP Pulse Ox 08/25/20 16:03 98.2 F 66 16 149/70 95 08/25/20 12:53 61 18 157/63 96 08/25/20 11:25 66 15 158/81 97 08/25/20 10:14 65 16 180/72 97 08/25/20 07:54 98.5 F 63 16 194/71 96 Intake and Output 08/25/20 08/25/20 08/25/20 06:59 14:59 22:59 Other: Weight 52.163 kg Results CBC & Chem 7: 08/25/20 09:10 08/25/20 09:10 Labs: Abnormal Lab Results - Last 24 Hours (Table) 08/25/20 08/25/20 08/25/20 Range/Units 09:10 09:10 09:10 WBC 11.7 H (3.8-10.6) k/uL Neutrophils # 9.3 H (1.3-7.7) k/uL Sodium 134 L (137-145) mmol/L Glucose 105 H (74-99) mg/dL Urine Appearance Cloudy H (Clear) Urine Nitrite Positive H (Negative) Ur Leukocyte Esterase Large H (Negative) Urine WBC 30 H (0-5) /hpf Urine Bacteria Moderate H (None) /hpf Urine Mucus Rare H (None) /hpf
--- NOTE | 2020-08-25 19:02 | CT ---
EXAMINATION TYPE: CT hip LT wo con DATE OF EXAM: 08/25/2020 COMPARISON: None HISTORY: Left hip pain post fall. CT DLP: 373.5 mGycm Automated exposure control for dose reduction was used. Images obtained from the mid ileum to the mid shaft of the femur without contrast. FINDINGS: Acetabulum is intact. Proximal femur is intact. There is no evidence of a hip fracture. The left sacr oiliac joint appears intact. There is no free fluid in the pelvis. There is no sign of a pelvic mass. IMPRESSION: Negative exam. No evidence of a hip fracture.
[2020-08-25] MEDS: CARBIDOPA-LEVODOPA ER 50-200MG 1 EACH TABLET.ER PO SCH (21:14)
[2020-08-25] MEDS: FLUTICASONE 50MCG/SPRAY NASAL 16GM EA NOSTRIL SCH (21:16)
[2020-08-25] MEDS ORDERED: cloNIDine HCL 0.2 MG TAB PO PRN (23:00)
[2020-08-25] MEDS: NON FORMULARY DRUG (Lifitegrast [Xiidra] 1 EACH Droperette) BOTH EYES SCH (23:14)
[2020-08-26] MEDS: KETOROLAC 15 MG/ML 1 ML VIAL IVP PRN ×2 (08:57→15:10)
[2020-08-26] MEDS ORDERED: cefTRIAXone IN SWFI 1,000 MG/10 ML SYRINGE IVP SCH (09:00)
[2020-08-26] MEDS: PANTOPRAZOLE 40 MG/10 ML VIAL IV SCH (09:01)
[2020-08-26] MEDS: FUROSEMIDE 20 MG TAB PO SCH (09:01)
[2020-08-26] MEDS: METOPROLOL SUCCINATE (ER) 50 MG TAB.ER.24H PO SCH (09:02)
[2020-08-26] MEDS: lisinopriL 20 MG TAB PO SCH (09:02)
[2020-08-26] MEDS: amLODIPine 10 MG TAB PO SCH (09:02)
[2020-08-26] MEDS: FLUTICASONE 50MCG/SPRAY NASAL 16GM EA NOSTRIL SCH ×2 (09:04→21:34)
[2020-08-26] MEDS: NON FORMULARY DRUG (Lifitegrast [Xiidra] 1 EACH Droperette) BOTH EYES SCH ×2 (11:39→21:36)
[2020-08-26] MEDS: NON FORMULARY DRUG (Mirabegron [Myrbetriq] 50 MG Tab.Er.24h) PO SCH (11:39)
--- NOTE | 2020-08-26 12:30 | P.PN ---
Subjective Progress Note Date: 08/26/20 Principal diagnosis: weakness, falls Patient is still significantly weak. She is requiring alot of assistance to get around. No urinary symptoms. No fevers. Objective - Vital Signs Vital signs: Vital Signs Temp 97.7 F 08/26/20 05:00 Pulse 63 08/26/20 05:00 Resp 16 08/26/20 05:00 BP 165/77 08/26/20 05:00 Pulse Ox 94 L 08/26/20 05:00 Intake & Output 08/25/20 08/26/20 08/26/20 18:59 06:59 18:59 Intake Total 175 Balance 175 Weight 52.163 kg Intake: Intake, IV Titration 175 Amount Sodium Chloride 0.9% 1, 175 000 ml @ 25 mls/hr IV . Q24H STA Rx#:[id number] Other: Voiding Method Bedpan Bedpan Incontinent # Voids 1 1 # Bowel Movements 0 - Exam General: non toxic, no distress, appears at stated age Derm: warm, dry Head: atraumatic, normocephalic, symmetric Eyes: EOMI, no lid lag, anicteric sclera, pupils equal round reactive to light ENT: Nose and ears atraumatic, no thrush, no pharyngeal erythema Neck: No thyromegaly, no cervical lymphadenopathy, trachea midline, supple Mouth: no lip lesion, mucus membranes moist Cardiovascular: S1S2 reg, no murmur, positive posterior tibial pulse bilateral, no edema, capillary refill less than 2 seconds Lungs: clear to ascultation bilateral, no ronchi, no rales, no wheeze, no accessory muscle use Abdominal: soft, nontender to palpation, no guarding, no appreciable organomegaly, normal bowel sounds Ext: no gross muscle atrophy, muscle strength muscle strength 5 out of 5 in all 4 extremities, no contractures Neuro: CN II-XI grossly intact, light touch intact all 4 extremities, finger to nose within normal limits, Psych: Alert, oriented, appropriate affect - Labs CBC & Chem 7: 08/25/20 09:10 08/25/20 09:10 Labs: Microbiology - Last 24 Hours (Table) 08/25/20 09:10 Urine Culture - Preliminary Urine,Voided Assessment and Plan Plan: Left hip contusion status post fall - Pain control - PT/OT Parkinson's disease -PT/OT -Resume Sinemet Adult failure to thrive/deconditioning -PT, rehab Hypertensive urgency -Resolved. -Resume amlodipine, Benzapril, and Toprol GERD -PPI D/w care management and RN. Anticipated discharge date: in AM Anticipated discharge place: rehab
[2020-08-26] MEDS: CARBIDOPA-LEVODOPA ER 50-200MG 1 EACH TABLET.ER PO SCH (21:34)
--- NOTE | 2020-08-27 05:53 | P.CONS ---
History of Present Illness - Chief Complaint Gait disturbance - History of Present Illness I had the opportunity to see patient for inpatient rehab consultation regard to gait disturbance. She was admitted to [facility] August 25 history of frequent falls Parkinson and with left hip pain. Admitted with working diagnoses of rib fractures, UTI. Workup includes negative chest x-ray, pelvis/left hip and hip C T. C-spine x-ray demonstrates moderate DDD especially at C5, 6. Has started therapies. PT reports moderate assistance for bed mobility but unable to stand or take steps. OT reports minimal assistance for upper dressing and toileting and moderate assistance for lower dressing, bathing and functional mobility/transfers. Previous functional history as elicited from patient: 89-year-old right-handed white female who is lives in [place] were meals are provided. She describes independent with own laundry, sitdown shower and gait with 4 wheeled walker. Is falling frequently. PCP Dr. Parada. Denies tobacco or alcohol ever. Review of Systems Review of systems: ENT: Denies sneezes or discharge. Eyes: Denies discharge or photophobia. Cardiac: Denies chest pain or palpitation. Pulmonary: Denies cough or shortness of breath. Breast: Denies discharge or lumps. Gastrointestinal: Denies nausea, emesis, constipation, diarrhea. Genitourinary: Denies discharge or frequency. Musculoskeletal: Denies muscle or bone aches. Neurologic: Frequent falling. Endocrine: Denies shakes or sweats. Oncology: Denies cancers. Dermatologic: Denies rash, itching, pruritus. ALLERGY/immunology: Denies sneezes, rashes. Past Medical History Past Medical History: Hypertension Additional Past Medical History / Comment(s): parkinson's, GERD, Overactive bladder, "thickening of the heart muscle" History of Any Multi-Drug Resistant Organisms: None Reported Past Surgical History: Appendectomy, Back Surgery, Hysterectomy, Tonsillectomy Additional Past Surgical History / Comment(s): History of abdominal lymphoma, status post resection Past Psychological History: No Psychological Hx Reported Smoking Status: Never smoker Past Alcohol Use History: Rare Past Drug Use History: None Reported - Past Family History Mother Family Medical History: No Reported History Medications and Allergies Home Medications Medication Instructions Recorded Confirmed Type Furosemide [Lasix] 20 mg PO Q48H 12/09/13 08/25/20 History amLODIPine BESYLATE/BENAZEPRIL 1 cap PO DAILY 12/09/13 08/25/20 History [Lotrel 10-20 mg Capsule] Lifitegrast [Xiidra] 1 drop BOTH EYES BID 09/21/18 08/25/20 History Mirabegron [Myrbetriq] 50 mg PO DAILY 09/21/18 08/25/20 History Carbidopa-Levodopa ER 50-200Mg 1 tab PO HS 08/25/20 08/25/20 History [Sinemet ER 50-200] Fluticasone Nasal Star [Flonase 1 spr EA NOSTRIL BID 08/25/20 08/25/20 History Nasal Star] Metoprolol Succinate [Toprol XL] 50 mg PO DAILY 08/25/20 08/25/20 History Omeprazole Magnesium [PriLOSEC OTC] 20 mg PO DAILY PRN 08/25/20 08/25/20 History Allergies Allergy/AdvReac Type Severity Reaction Status Date / Time oxybutynin chloride Allergy Rash/Hives Verified 08/25/20 11:33 [From Ditropan] Physical Exam Vitals: Vital Signs Temp Pulse Resp BP Pulse Ox 08/26/20 20:02 97.5 F L 57 L 18 149/73 96 08/26/20 11:15 97.8 F 52 L 12 155/69 98 Intake and Output 08/26/20 08/26/20 08/27/20 14:59 22:59 06:59 Intake Total 290 Balance 290 Intake: Intake, IV Titration 290 Amount Sodium Chloride 0.9% 1, 240 000 ml @ 25 mls/hr IV . Q24H STA Rx#:[id number] cefTRIAXone 1 gm In 50 Sodium Chloride 0.9% 50 ml @ 100 mls/hr IVPB Q24HR [facility] Rx#:[id number] Other: Voiding Method Bedpan Bedside Commode Incontinent Bedpan Incontinent Skin: Atrophic, intact. General: Thin build and comfortable appearance. Head: Normocephalic, atraumatic. Eyes: Symmetric. Pupils equal round. Ears: Symmetric. Hearing within normal limits. Mouth: Clear. Neck: Supple. Carotid without bruit. Cardiac: Regular rate and rhythm. Lungs: Clear anteriorly and posteriorly. Abdomen: Soft active nontender. Extremities: Normal tone. Thin limbs. Neurological: Mental status: Alert, cooperative, pleasant. Cranial nerves: Symmetric facial tone and trapezius. Motor: Can actively move all 4 limbs. Sensation: Intact throughout. DTRs: Symmetric and equal throughout. Mobility: Sits with physical assistance. Results CBC & Chem 7: 08/25/20 09:10 08/25/20 09:10 Labs: Microbiology - Last 24 Hours (Table) 08/25/20 09:10 Urine Culture - Preliminary Urine,Voided Gram Neg Bacilli 08/25/20 12:49 Blood Culture - Preliminary Blood No Growth after 24 hours 08/25/20 12:50 Blood Culture - Preliminary Blood No Growth after 24 hours Assessment and Plan (1) Contusion of left hip Current Visit: Yes Status: Acute Code(s): S70.02XA - CONTUSION OF LEFT HIP, INITIAL ENCOUNTER SNOMED Code(s): 38014273 (2) Urinary tract infection Current Visit: Yes Status: Acute Code(s): N39.0 - URINARY TRACT INFECTION, SITE NOT SPECIFIED SNOMED Code(s): 19690444 (3) Multiple rib fractures Current Visit: No Status: Acute Code(s): S22.49XA - MULTIPLE FRACTURES OF RIBS, UNSP SIDE, INIT FOR CLOS FX SNOMED Code(s): 9220132 Plan: Impression: 1. Gait disturbance due to Parkinson exacerbation. 2. History of frequent fall and now with multiple rib fractures. 3. UTI. 4. Hypertension. Comments and plan: At this time PT and OT are ongoing. Patient really has difficulty with standing and/or walking up. This appears to be underlying problem of her Parkinson. Note that inpatient rehabilitation does not correct for Parkinson but rather rehabilitate patient utilize the best of remaining function. The patient has no real supports for discharge or return to home. At this time should begin to consider alternative discharge plan where support is available.
[2020-08-27] MEDS: amLODIPine 10 MG TAB PO SCH (07:54)
[2020-08-27] MEDS: METOPROLOL SUCCINATE (ER) 50 MG TAB.ER.24H PO SCH (07:54)
[2020-08-27] MEDS: lisinopriL 20 MG TAB PO SCH (07:54)
[2020-08-27] MEDS: FLUTICASONE 50MCG/SPRAY NASAL 16GM EA NOSTRIL SCH ×2 (07:55→20:29)
[2020-08-27] MEDS: PANTOPRAZOLE 40 MG/10 ML VIAL IV SCH (07:56)
[2020-08-27] MEDS: NON FORMULARY DRUG (Lifitegrast [Xiidra] 1 EACH Droperette) BOTH EYES SCH ×2 (07:56→20:28)
[2020-08-27] MEDS: NON FORMULARY DRUG (Mirabegron [Myrbetriq] 50 MG Tab.Er.24h) PO SCH (07:56)
[2020-08-27] MEDS: KETOROLAC 15 MG/ML 1 ML VIAL IVP PRN (08:07)
--- NOTE | 2020-08-27 16:41 | P.PN ---
Subjective Progress Note Date: 08/27/20 Principal diagnosis: weakness, falls Patient is still significantly weak. She is requiring alot of assistance to get around. Objective - Vital Signs Vital signs: Vital Signs Temp 97.9 F 08/27/20 12:31 Pulse 48 L 08/27/20 12:31 Resp 17 08/27/20 12:31 BP 135/68 08/27/20 12:31 Pulse Ox 96 08/27/20 12:31 Intake & Output 08/26/20 08/27/20 08/27/20 18:59 06:59 18:59 Intake Total 290 350 50 Balance 290 350 50 Intake: Intake, IV Titration 290 50 Amount Sodium Chloride 0.9% 1, 240 000 ml @ 25 mls/hr IV . Q24H [facility] Rx#:[id number] cefTRIAXone 1 gm In 50 50 Sodium Chloride 0.9% 50 ml @ 100 mls/hr IVPB Q24HR [facility] Rx#:[id number] Oral 350 Other: Voiding Method Bedpan Bedside Commode Incontinent Bedpan Incontinent # Voids 2 1 - Exam General: non toxic, no distress, appears at stated age Derm: warm, dry Head: atraumatic, normocephalic, symmetric Eyes: EOMI, no lid lag, anicteric sclera, pupils equal round reactive to light ENT: Nose and ears atraumatic, no thrush, no pharyngeal erythema Neck: No thyromegaly, no cervical lymphadenopathy, trachea midline, supple Mouth: no lip lesion, mucus membranes moist Cardiovascular: S1S2 reg, no murmur, positive posterior tibial pulse bilateral, no edema, capillary refill less than 2 seconds Lungs: clear to ascultation bilateral, no ronchi, no rales, no wheeze, no accessory muscle use Abdominal: soft, nontender to palpation, no guarding, no appreciable organomegaly, normal bowel sounds Ext: no gross muscle atrophy, muscle strength muscle strength 5 out of 5 in all 4 extremities, no contractures Neuro: CN II-XI grossly intact, light touch intact all 4 extremities, finger to nose within normal limits, Psych: Alert, oriented, appropriate affect - Labs CBC & Chem 7: 08/25/20 09:10 08/25/20 09:10 Labs: Microbiology - Last 24 Hours (Table) 08/25/20 12:50 Blood Culture - Preliminary Blood No Growth after 48 hours 08/25/20 12:49 Blood Culture - Preliminary Blood No Growth after 48 hours 08/25/20 09:10 Urine Culture - Preliminary Urine,Voided Gram Neg Bacilli Assessment and Plan Plan: Left hip contusion status post fall - Pain control - PT/OT Parkinson's disease -PT/OT -Resume Sinemet -Outpatient neuro follow up. Adult failure to thrive/deconditioning -PT, rehab Hypertensive urgency -Resolved. -Resume amlodipine, Benzapril, and Toprol GERD -PPI D/w care management-awaiting rehab placement.
[2020-08-27 20:12] VITALS: RESP 16
[2020-08-27] MEDS: CARBIDOPA-LEVODOPA ER 50-200MG 1 EACH TABLET.ER PO SCH (20:30)
[2020-08-28] MEDS ORDERED: PANTOPRAZOLE 40 MG TABLET PO SCH (07:30)
[2020-08-28] MEDS: lisinopriL 20 MG TAB PO SCH (09:09)
[2020-08-28] MEDS: METOPROLOL SUCCINATE (ER) 50 MG TAB.ER.24H PO SCH (09:09)
[2020-08-28] MEDS: amLODIPine 10 MG TAB PO SCH (09:09)
[2020-08-28] MEDS: FLUTICASONE 50MCG/SPRAY NASAL 16GM EA NOSTRIL SCH (09:10)
[2020-08-28] MEDS: FUROSEMIDE 20 MG TAB PO SCH (09:10)
[2020-08-28] MEDS: NON FORMULARY DRUG (Lifitegrast [Xiidra] 1 EACH Droperette) BOTH EYES SCH (09:11)
[2020-08-28] MEDS: NON FORMULARY DRUG (Mirabegron [Myrbetriq] 50 MG Tab.Er.24h) PO SCH (09:11)
[2020-08-28 12:42] VITALS: BP 134/76; PULSE 47; TEMP 97.8
--- NOTE | 2020-08-28 13:09 | P.DS ---
Providers Date of admission: 08/27/20 16:39 Expected date of discharge: 08/28/20 Attending physician: Maria R Gilmore DO Consults: 08/26/20 09:35 Consult Physician Routine Consulting Provider: Krish Avalos Consult Reason/Comments: inpatient rehab Do you want consulting provider notified?: Yes Primary care physician: Micky Hendrix MD Hospital Course: 89-year-old female with a history of Parkinson's, hypertension, and prior lymphoma status post resection who presented to the ER after a fall at home with left hip pain, inability to stand, and difficulty raising her left leg. She has been generally weak for the past several weaks. Typically her right side is worse due to her Parkinson's disease. She uses a rolling walker at home as well as a lift chair. She denied any recent cough, cold, fever, flu, nausea, vomiting, diarrhea, fevers, chills, or dysuria. She has chronic constipation which is unchanged. She denied any lightheadedness, dizziness, unusual shortness of breath, or chest pain with these falls. She does feel that she has had more freezing, slowed movements, and rigidity recently from her Parkinson's. She used to take her Sinemet twice daily but was dropped down to once daily at some point. She also recently was placed on Ambien for difficulty sleeping. She was subsequently stopped that medication. Work up in the ER with chest x-ray showed no acute cardiopulmonary process. Left hip x-ray showed no acute fracture or dislocation in the hip or pelvis. Cervical spine x-ray shows moderate degenerative changes throughout the cervical spine. UA showed pyuria and she was started on Rocephin. Patient was subsequently admitted. She had a CT of the left hip that showed no acute fractures. Pain was control with IV toradol. Patient was seen by physical therapy and rehabilitation and she was referred for rehab. Care management was involved and patient was accepted at the rehabilitation facility. She will be transferred in a stable condition. Time for discharge 36 min Patient Condition at Discharge: Fair Plan - Discharge Summary New Discharge Prescriptions: New Ibuprofen [Motrin] 400 mg PO Q6HR PRN 30 Days #60 tab PRN Reason: Pain Continue amLODIPine BESYLATE/BENAZEPRIL [Lotrel 10-20 MG] 1 cap PO DAILY Furosemide [Lasix] 20 mg PO Q48H Mirabegron [Myrbetriq] 50 mg PO DAILY Lifitegrast [Xiidra] 1 drop BOTH EYES BID Carbidopa-Levodopa ER 50-200Mg [Sinemet CR 50-200 mg] 1 tab PO HS Omeprazole Magnesium [PriLOSEC OTC] 20 mg PO DAILY PRN PRN Reason: Heartburn Fluticasone Nasal Osteen [Flonase Nasal Osteen] 1 spr EA NOSTRIL BID Metoprolol Succinate [Toprol XL] 50 mg PO DAILY Discharge Medication List Furosemide [Lasix] 20 mg PO Q48H 12/09/13 [History] amLODIPine BESYLATE/BENAZEPRIL [Lotrel 10-20 MG] 1 cap PO DAILY 12/09/13 [History] Lifitegrast [Xiidra] 1 drop BOTH EYES BID 09/21/18 [History] Mirabegron [Myrbetriq] 50 mg PO DAILY 09/21/18 [History] Carbidopa-Levodopa ER 50-200Mg [Sinemet CR 50-200 mg] 1 tab PO HS 08/25/20 [History] Fluticasone Nasal Osteen [Flonase Nasal Osteen] 1 spr EA NOSTRIL BID 08/25/20 [History] Metoprolol Succinate [Toprol XL] 50 mg PO DAILY 08/25/20 [History] Omeprazole Magnesium [PriLOSEC OTC] 20 mg PO DAILY PRN 08/25/20 [History] Ibuprofen [Motrin] 400 mg PO Q6HR PRN 30 Days #60 tab 08/28/20 [Rx] Follow up Appointment(s)/Referral(s): Micky Hendrix MD [Primary Care Provider] - 1-2 days
== END 2020-08-28 15:50 ==
LOC: EC 07:48 → 5NMEDONC 14:32 → OBSVTOIN 08-27 16:39 → INTOOBSV 08-27 16:39 → UNDODISIN 08-28 15:50
PROVIDERS: ADMIT Internal Medicine; ATTEND Internal Medicine
DX: G20 Parkinson's disease (principal); N39.0 Urinary tract infection, site not specified; S70.02XA Contusion of left hip, initial encounter; I10 Essential (primary) hypertension; I16.0 Hypertensive urgency; K21.9 Gastro-esophageal reflux disease without esophagitis; M50.322 Other cervical disc degeneration at C5-C6 level; K59.09 Other constipation; W19.XXXA Unspecified fall, initial encounter; R62.7 Adult failure to thrive; R53.81 Other malaise; N32.81 Overactive bladder; R29.6 Repeated falls; Z98.890 Other specified postprocedural states; Z79.899 Other long term (current) drug therapy; Z90.49 Acquired absence of other specified parts of digestive tract; Z90.710 Acquired absence of both cervix and uterus; Z85.72 Personal history of non-Hodgkin lymphomas; Z91.81 History of falling; Y92.009 Unspecified place in unspecified non-institutional (private) residence as the place of occurrence of the external cause
CPT/HCPCS: 96361; 96374; 96375; 99285; 36415; 93005; 97530; 97162; 97535 ×2; 97166; 80053; 82550; 83735; 84484; 85025; 81001; 87040; 87086; 87077; 87186; 72050; 73502; 71046; 73700; G0378 ×5; J0696 ×4; J1885 ×3; C9113 ×2